=== PATIENT | female | born 1930 | race Native Hawaiian/Other Pacific Islander ===

== ENCOUNTER 2016-08-20 08:42 | Emergency (ER) | payer MEDICARE ==
[2016-08-20 08:42] VITALS: BMI 23.6
--- NOTE | 2016-08-20 09:10 | C.PDOC ---
History Of Present Illness 86-year-old female, PMHx includes Hypertension, Hypercholesterolemia, Osteoporosis, and Atrial Fibrillation s/p Pacemaker, presents to the emergency department with complaints of shortness of breath, that started at 06:00 this morning. Patient states she has never experienced this in the past. Notes that she had surgery on her left knee in 12/10, and it became swollen this past month. Patient is currently on ABX course for her leg. Denies fevers, chills, chest pain, nausea/vomiting, diarrhea, back pain, dizziness, headaches, numbness /weakness, or any other associated symptoms. No other complaints at this time. PMD Alexandra Hughes MD. Building Mover Torsten Guerrier MD. Time Seen by Provider: 08/20/16 08:44 Chief Complaint (Nursing): Shortness Of Breath History Per: Patient History/Exam Limitations: no limitations Onset/Duration Of Symptoms: Hrs Current Symptoms Are (Timing): Still Present Past Medical History Reviewed: Historical Data, Nursing Documentation, Vital Signs Vital Signs: Last Vital Signs Temp 98.1 F 08/20/16 09:07 Pulse 70 08/20/16 11:04 Resp 18 08/20/16 11:04 BP 143/67 08/20/16 11:04 Pulse Ox 100 08/20/16 11:04 - Medical History PMH: Arthritis, Cardia Arrhythmia, Depression, Fractures (right hip), HTN, Hypercholesterolemia, Osteoporosis Surgical History: Endoscopy, Pacemaker - [facility] Procedures REMOVE INT FIX DEV-FEMUR (09/05/14) REPLAC ANY TYPE PACE DEV W/ DUAL CHAMBER DEVICE (02/27/14) REPLACEMENT OF LEFT KNEE JOINT WITH SYNTH SUB, OPEN APPROACH (12/09/15) Family History: States: No Known Family Hx - Social History Hx Tobacco Use: No Hx Alcohol Use: No Hx Substance Use: No - Immunization History Hx Tetanus Toxoid Vaccination: No Hx Influenza Vaccination: Yes Hx Pneumococcal Vaccination: No Review Of Systems Constitutional: Negative for: Fever, Chills Cardiovascular: Negative for: Chest Pain Respiratory: Positive for: Shortness of Breath Gastrointestinal: Negative for: Vomiting Skin: Negative for: Rash Neurological: Negative for: Weakness, Numbness, Headache, Dizziness Physical Exam - Physical Exam Appears: Non-toxic, No Acute Distress Skin: Warm, Dry Head: Atraumatic Nose: No Epistaxis Oral Mucosa: Moist Lips: No Swelling Neck: Normal ROM Cardiovascular: Rhythm Regular, No Murmur Respiratory: No Accessory Muscle Use, Rales (Velcro crackles at left base) Gastrointestinal/Abdominal: Soft, No Tenderness Extremity: No Tenderness, Pedal Edema, No Deformity, Swelling, Other (Trace edema to left lower extremity. Swelling: left knee. Good pulses) Neurological/Psych: Oriented x3, Normal Motor, Normal Sensation, Other (no focal deficits) ED Course And Treatment - Laboratory Results Result Diagrams: 08/20/16 09:23 08/20/16 09:23 - Other Rad CXR X-Ray: Viewed By Me, Read By Radiologist Interpretation: FINDINGS: LUNGS: Hyperinflation, manifestations of COPD. No active pulmonary disease. PLEURA: No significant pleural effusion identified. No pneumothorax apparent. CARDIOVASCULAR: Cardiomegaly. No evidence of acute , significant cardiovascular disease. Position/ configuration of pacemaker\AICD device: Satisfactory. OSSEOUS STRUCTURES: No significant abnormalities. VISUALIZED UPPER ABDOMEN: Normal. OTHER FINDINGS: None. IMPRESSION: No active disease. Congestive heart failure apparent on the prior study has resolved. Medical Decision Making Medical Decision Making: EKG Rate 81bpm Rhythm Atrial Fibrillation Interpret Occasional PVCs, atrial paced. CXR: interstitial fibrotic changes. no acute findings. 1300 despite lengthy conversation with both myself and Dr Adkins, including risks of leaving and reasons for admission, the patient still wishes to sign out against medical advice. Disposition - Disposition Referrals: Alexandra Laws MD [Staff Provider] - Disposition: AGAINST MEDICAL ADVICE Disposition Time: 13:07 Condition: STABLE Forms: General Discharge Instructions - Clinical Impression Clinical Impression: Shortness of breath - Scribe Statement The provider has reviewed the documentation as recorded by the Candie Hanna All medical record entries made by the Scribe were at my direction and personally dictated by me. I have reviewed the chart and agree that the record accurately reflects my personal performance of the history, physical exam, medical decision making, and the department course for this patient. I have also personally directed, reviewed, and agree with the discharge instructions and disposition.
[2016-08-20 09:14] VITALS: TEMP 98.1
[2016-08-20 09:26] LABS: BASO # 0.1 K/uL (0.0-0.2); BASO % 1.2 % (0.0-2.0); EOS # 0.4 K/uL (0.0-0.7); EOS % 4.4 % (0.0-4.0); HEMATOCRIT 37.8 % (34.0-47.0); LYMPH # 1.1 K/uL (1.0-4.3); LYMPH % 14.2 % (20.0-40.0); MEAN CELL VOLUME 89.6 fL (81.0-99.0); MEAN CORPUSCULAR HEMOGLOBIN 29.7 pg (27.0-31.0); MEAN CORPUSCULAR HGB CONC 33.2 g/dL (33.0-37.0); MEAN PLATELET VOLUME 7.2 fL (7.2-11.7); MONO # 0.6 K/uL (0.0-0.8); MONO % 7.1 % (0.0-10.0); RED CELL DISTRIBUTION WIDTH 13.4 % (11.5-14.5); WHITE BLOOD COUNT 8.1 K/uL (4.8-10.8)
[2016-08-20 09:34] LABS: INR 1.2
[2016-08-20 09:37] LABS: CHLORIDE 99 mmol/L (98-107); POTASSIUM 4.4 mmol/L (3.6-5.2); SODIUM 138 mmol/L (132-148)
[2016-08-20 09:39] LABS: GFR AFRICAN-AMERICAN > 60
[2016-08-20 09:40] LABS: ALB/GLOB RATIO 0.9 (1.0-2.1); ALKALINE PHOSPHATASE 99 U/L (38-126); ALT/SGPT 12 U/L (9-52); AST/SGOT 33 U/L (14-36); BILIRUBIN,TOTAL 0.8 mg/dL (0.2-1.3); BLOOD UREA NITROGEN 14 mg/dL (7-17); CARBON DIOXIDE 27 mmol/L (22-30); GLUCOSE,RANDOM 101 mg/dL (65-105); TOTAL PROTEIN 8.6 g/dL (6.3-8.3)
[2016-08-20 09:41] LABS: CALCIUM 9.4 mg/dl (8.6-10.4)
--- NOTE | 2016-08-20 09:50 | RAD ---
HISTORY: Shortness of breath. COMPARISON: 09/07/2014. TECHNIQUE: Chest PA and lateral FINDINGS: LUNGS: Hyperinflation, manifestations of COPD. No active pulmonary disease. PLEURA: No significant pleural effusion identified. No pneumothorax apparent. CARDIOVASCULAR: Cardiomegaly. No evidence of acute, significant cardiovascular disease. Position/ configuration of pacemaker Satisfactory. OSSEOUS STRUCTURES: No significant abnormalities. VISUALIZED UPPER ABDOMEN: Normal. OTHER FINDINGS: None. IMPRESSION: No active disease. Congestive heart failure apparent on the prior study has resolved.
[2016-08-20 11:05] VITALS: BP 143/67; PULSE 70; RESP 18; O2SAT 100
--- NOTE | 2016-08-20 11:06 | NM ---
COMPARISON: August 20, 2016. Two view chest. 09/07/2014 ventilation-perfusion scan TECHNIQUE: 18.3 mCi technetium 99-m Xe-133 Gas. 3.5 mCI technetium 99-m MAA administered intravenously. FINDINGS: VENTILATION COMPONENT: Heterogeneous ventilation with considerable retention of radionuclide, air trapping on the washout component. This is particularly evident in the a left upper lobe and to a lesser extent right upper lobe. PERFUSION COMPONENT: Heterogeneous distribution of radionuclide. No geographic, segmental, lobar abnormalities apparent on the present examination. IMPRESSION: Low probability ventilation perfusion scan for pulmonary embolism.
--- NOTE | 2016-08-23 10:14 | VASCLAB ---
PROCEDURE: Left Lower Extremity Venous Duplex Exam. HISTORY: swelling PRIORS: None. TECHNIQUE: Left common femoral, femoral, popliteal and posterior tibial, peroneal and great saphenous veins were evaluated. Flow was assessed with color Doppler, compressibility, assessment of phasic flow and augmentation response. Report prepared by RONI Carrasco, RVT FINDINGS: LEFT: 1. Common Femoral Vein: 1.1. Compressibility - Fully compressible: Thrombus - None : Flow - Phasic: Augmentation -Normal: Reflux - None. 2. Femoral Vein: 2.1. Compressibility - Fully compressible: Thrombus - None: Flow - Phasic: Augmentation -Normal: Reflux - None. 3. Popliteal Vein: 3.1. Compressibility - Fully compressible: Thrombus - None: Flow - Phasic: Augmentation -Normal: Reflux - None. 4. Posterior Tibial Vein: 4.1. Compressibility - Fully compressible: Thrombus - None: Flow - Phasic: Augmentation -Normal: Reflux - None. 5. Peroneal Vein: 5.1. Compressibility - Fully compressible: Thrombus - None: Flow - Phasic: Augmentation -Normal: Reflux - None. 6. Great Saphenous Vein: 6.1. Compressibility - Fully compressible: Thrombus - None: Flow - Phasic: Augmentation - Normal: Reflux - None. OTHER FINDINGS: IMPRESSION: No evidence of deep or superficial vein thrombosis of the left lower extremity with excellent venous flow. Normal valve function noted of the left side. Normal venous flow noted in the right common femoral vein.
--- NOTE | 2016-08-23 12:21 | CARD ---
APPROVED REPORT EKG Measurement Heart [id number] <Conclusion> Atrial fibrillation with occasional atrial-paced complexes and with premature ventricular or aberrantly conducted complexes Right axis deviation Nonspecific ST abnormality Abnormal ECG MALFUNCTION OF PACEMAKER, NOT SENSING WELL
== END 2016-08-20 14:00 | disposition left against medical advice (07) ==
LOC: C.ER 08:42 → C.9E 11:22 → UNDOADMOB 11:22 → C.ER 14:00
DX: R06.02 Shortness of breath (principal); I10 Essential (primary) hypertension; E78.00 Pure hypercholesterolemia, unspecified; Z95.0 Presence of cardiac pacemaker
CPT/HCPCS: 71020; 78582; 80053; 83880; 84484; 85025; 85610; 85730; 93005; 93971; 99285; A9524; A9558

== ENCOUNTER 2016-09-05 13:28 | Inpatient (IN) | payer MEDICARE ==
[2016-09-05 13:36] VITALS: BMI 24.2
[2016-09-05] MEDS ORDERED: Sodium Chloride 0.9% 500 ML IV ONE (14:56)
--- NOTE | 2016-09-05 15:01 | C.PDOC ---
History Of Present Illness 86 yr old female presents to the ER with complaints of left knee pain and swelling ongoing for approximately last 9 months. Patient states she had a total knee replacement by Dr Merida in Nov 2015. Since then she has taken antibiotics (none in 1+ month), intermittent fevers, and pain. Worse with movement. Denies chest pain, SOB, back pain, foot pain, weakness or numbness. Time Seen by Provider: 09/05/16 14:41 Chief Complaint (Nursing): Lower Extremity Problem/Injury History Per: Patient History/Exam Limitations: no limitations Onset/Duration Of Symptoms: Persistent (Approx. 9 months ) Current Symptoms Are (Timing): Still Present Past Medical History Reviewed: Historical Data, Nursing Documentation, Vital Signs Vital Signs: Last Vital Signs Temp 97.9 F 09/08/16 15:58 Pulse 60 09/08/16 15:58 Resp 20 09/08/16 15:58 BP 148/68 09/08/16 15:58 Pulse Ox 97 09/08/16 15:58 - Medical History PMH: Arthritis, Cardia Arrhythmia, Depression, Fractures (right hip), HTN, Hypercholesterolemia, Osteoporosis Surgical History: Endoscopy, Pacemaker - [facility] Procedures REMOVE INT FIX DEV-FEMUR (09/05/14) REPLAC ANY TYPE PACE DEV W/ DUAL CHAMBER DEVICE (02/27/14) REPLACEMENT OF LEFT KNEE JOINT WITH SYNTH SUB, OPEN APPROACH (12/09/15) Family History: States: No Known Family Hx - Social History Hx Tobacco Use: No Hx Alcohol Use: No Hx Substance Use: No - Immunization History Hx Tetanus Toxoid Vaccination: No Hx Influenza Vaccination: Yes Hx Pneumococcal Vaccination: No Review Of Systems Except As Marked, All Systems Reviewed And Found Negative. Constitutional: Positive for: Fever (On and off. ) Cardiovascular: Negative for: Chest Pain Respiratory: Negative for: Shortness of Breath Musculoskeletal: Positive for: Other ((+) Left knee paind and swelling. ). Negative for: Back Pain, Foot Pain Neurological: Negative for: Weakness, Numbness Physical Exam - Physical Exam Appears: Well, Non-toxic, No Acute Distress Skin: Warm, Dry, No Rash Head: Atraumatic, Normacephalic Eye(s): bilateral: Normal Inspection, EOMI Nose: Normal Oral Mucosa: Moist Chest: Symmetrical, No Tenderness Cardiovascular: Rhythm Regular, No Murmur Respiratory: Normal Breath Sounds, No Rales, No Rhonchi, No Wheezing Extremity: Normal ROM (Normal ROM but with pain. ), No Calf Tenderness, Capillary Refill (<2 sec), Other (Right Knee - Swelling. Tenderness. Mild warmth. Mild erythema. Healed incision. No discharge) Extremity: Bilateral: Normal Color And Temperature Pulses: Left Dorsalis Pedis: Normal, Right Dorsalis Pedis: Normal Neurological/Psych: Oriented x3, Normal Speech, Normal Motor, Normal Sensation ED Course And Treatment - Laboratory Results Result Diagrams: 09/06/16 13:50 09/06/16 13:50 O2 Sat by Pulse Oximetry: 95 (RA) - CT Scan/US CT - Left Knee Other Rad Studies (CT/US): Read By Radiologist, Radiology Report Reviewed CT/US Interpretation: EXAM: CT Left Lower Extremity Without Intravenous Contrast, Knee. CLINICAL HISTORY: 86 years old, female; Pain; Knee; Left; Prior surgery; Surgery date: 6+ months; Surgery type: Total. left knee replacement. TECHNIQUE: Axial computed tomography images of the left knee without intravenous contrast. This CT exam was. performed using one or more of the following dose reduction techniques: automated exposure. control, adjustment of the mA and/or kV according to patient size, and/or use of iterative. reconstruction technique. COMPARISON: No relevant prior studies available. FINDINGS: Bones/joints: There has been a left total hip arthroplasty without apparent loosening or. displacement. A large suprapatellar joint effusion is present, which appears complex and dense. No. focal bony lesions are seen. No fractures or dislocation. Mild soft tissue thickening anterior to the. knee is present. Soft tissues: No soft tissue gas or fluid collection is present. Mild soft tissue edema anterior to the. knee. Vasculature: The vasculature demonstrates diffuse moderate atherosclerotic calcification. IMPRESSION: Post surgical changes are present as described. Assessment of the soft tissues are limited. secondary to extensive streak artifact. No evidence of soft tissue abscess or necrotizing fasciitis. Prominent suprapatellar joint effusion is seen which has complex features. Presence of the joint. infection or inflammatory process cannot be excluded given the complex appearance of the. suprapatellar joint effusion. Consider correlation with joint fluid sampling. Mild soft tissue edema anterior and superior to the patella which could represent cellulitis. Thank you for allowing us to participate in the care of your patient. Dictated and Authenticated by: Sanjiv Wright MD. 09/05/2016 5:34 PM Eastern Time ([place] & [place]) Progress Note: PLAN: CT - Left Knee, CBC, CMP, Urinalysis & Sodium Chloride IV. Case discussed with Dr Abad, agreed upon no abx at this time secondary to possible aspiration inpatient. Case was discussed with Dr. Alexandra Hughes who agrees to admit patient. Disposition - Disposition Disposition: HOSPITALIZED Disposition Time: 16:00 Condition: STABLE - Clinical Impression Clinical Impression: Knee pain, Cellulitis, S/P TKR (total knee replacement) - PA / INSURANCE LICENSING SUPERVISOR / Resident Statement MD/DO has reviewed & agrees with the documentation as recorded. - Scribe Statement The provider has reviewed the documentation as recorded by the Scribe Jessica Landry All medical record entries made by the Scribe were at my direction and personally dictated by me. I have reviewed the chart and agree that the record accurately reflects my personal performance of the history, physical exam, medical decision making, and the department course for this patient. I have also personally directed, reviewed, and agree with the discharge instructions and disposition.
[2016-09-05 16:12] LABS: BASO # 0.1 K/uL (0.0-0.2); BASO % 1.1 % (0.0-2.0); EOS # 0.5 K/uL (0.0-0.7); EOS % 6.5 % (0.0-4.0); LYMPH # 1.6 K/uL (1.0-4.3); LYMPH % 22.7 % (20.0-40.0); MEAN CELL VOLUME 90.2 fL (81.0-99.0); MEAN CORPUSCULAR HGB CONC 32.1 g/dL (33.0-37.0); MEAN PLATELET VOLUME 8.1 fL (7.2-11.7); MONO # 0.7 K/uL (0.0-0.8); MONO % 10.1 % (0.0-10.0); RED CELL DISTRIBUTION WIDTH 13.6 % (11.5-14.5)
[2016-09-05 16:28] LABS: RBC URINE < 1 /hpf (0-3); TRANSITIONAL EPITHIAL 1 /hpf (0-3); URINE BACTERIA RARE (<OCC); URINE BILIRUBIN NEGATIVE (NEGATIVE); URINE BLOOD NEGATIVE (NEGATIVE); URINE COLOR Yellow (YELLOW); URINE GLUCOSE (UA) NORMAL (Normal); URINE KETONE NEGATIVE (NEGATIVE); URINE LEUKOCYTE ESTERASE 2+ Leu/uL (Negative); URINE PROTEIN NEGATIVE (NEGATIVE); URINE UROBILINOGEN NORMAL mg/dL (0.2-1.0); WBC URINE 10 /hpf (0-5)
[2016-09-05 16:29] LABS: CHLORIDE 102 mmol/L (98-107); POTASSIUM 4.5 mmol/L (3.6-5.2); SODIUM 138 mmol/L (132-148)
[2016-09-05 16:31] LABS: GFR AFRICAN-AMERICAN > 60
[2016-09-05 16:32] LABS: ALB/GLOB RATIO 0.9 (1.0-2.1); ALKALINE PHOSPHATASE 98 U/L (38-126); ALT/SGPT 18 U/L (9-52); AST/SGOT 22 U/L (14-36); BILIRUBIN,TOTAL 0.6 mg/dL (0.2-1.3); BLOOD UREA NITROGEN 18 mg/dL (7-17); CARBON DIOXIDE 27 mmol/L (22-30); GLUCOSE,RANDOM 91 mg/dL (65-105); TOTAL PROTEIN 7.9 g/dL (6.3-8.3)
[2016-09-05 16:33] LABS: CALCIUM 9.1 mg/dl (8.6-10.4)
--- NOTE | 2016-09-05 19:22 | CP.PCM.HP ---
History of Present Illness - History of Present Illness History of Present Illness: This is an 86 y/o female well known to me with history of CAD S/P PCI and permanent pacemaker several years ago, HTN, hyperlipidemia and osteoarthritis who was admitted through the ER because of severe pain and swelling of the L knee. She claims that she has been having intermittent fever at home for which she has been taking Tylenol on and off for several weeks now. She lives by herself and she has been having such a difficult time getting around the house over the last several months. She underwent total knee replacement in [facility] in Nov 2015. Since then, she claims that she has never felt good and the swelling and pain in her left knee has never gone down. Over the last month, she has gone to the ER 3 times for the same problem. X-ray of the knee at that time showed joint effusion. She was advised to follow up with her orthopedist at his office. She claims that she has been following up with him in the office regularly since her surgery without relief of her symptoms. On her previous visit to the ER 2 weeks ago, she claims that her knee was so hot and swollen and she noticed purplish discoloration around the area extending to the popliteal area accompanied by some shortness of breath. Work up for DVT and PE then were reportedly negative and hence she was discharged. She followed up with her Orthopedist in his office and was given po antibiotics for about 10 days with some relief of the discoloration but the swelling, pain and heat and inflammation remained. She thus decided to go to the ER and she is now admitted for further evaluation. Present on Admission - Present on Admission Any Indicators Present on Admission: No History of DVT/PE: No History of Uncontrolled Diabetes: No Urinary Catheter: No Decubitus Ulcer Present: No History Surgical Site Infection Following: Orthopedic Procedures Review of Systems - Constitutional Constitutional: Fatigue, Fever, Night Sweats, Weight Loss, Weakness - EENT Eyes: As Per HPI Ears: As Per HPI Nose/Mouth/Throat: As Per HPI - Cardiovascular Cardiovascular: Dyspnea on Exertion, Irregular Heart Rhythm - Respiratory Respiratory: Dyspnea on Exertion Past Patient History - Infectious Disease Hx of Infectious Diseases: None - Tetanus Immunizations Tetanus Immunization: Unknown - Past Medical History & Family History Past Medical History?: Yes - Past Social History Smoking Status: Never Smoked Chewing Tobacco Use: No Cigar Use: No Alcohol: None Drugs: Denies Home Situation {Lives}: Alone Domestic Violence: Negative - CARDIAC Hx Angina: Yes Hx Cardia Arrhythmia: Yes Hx Hypercholesterolemia: Yes Hx Hypertension: Yes Hx Pacemaker: Yes - PULMONARY Hx Respiratory Disorders: No - NEUROLOGICAL Hx Neurological Disorder: No - HEENT Hx HEENT Problems: No - INTEGUMENTARY Hx Dermatological Problems: No - MUSCULOSKELETAL/RHEUMATOLOGICAL Hx Arthritis: Yes Hx Degenerative Joint Disease: Yes Hx Fractures: Yes (right hip) Hx Osteoarthritis: Yes Hx Osteoporosis: Yes Hx Unsteady Gait: Yes - PSYCHIATRIC Hx Depression: Yes Hx Substance Use: No - SURGICAL HISTORY Hx Surgeries: Yes Hx Angioplasty: Yes Hx Arthroscopy: Yes Hx Cardiac Catheterization: Yes Hx Coronary Stent: Yes Hx Joint Replacement: Yes Hx Open Reduction Internal Fixation: Yes Hx Orthopedic Surgery: Yes - ANESTHESIA Hx Anesthesia: Yes Hx Anesthesia Reactions: Yes (Confusion , Hallucination ) Hx Malignant Hyperthermia: No Meds Allergies/Adverse Reactions: Allergies Allergy/AdvReac Type Severity Reaction Status Date / Time Iodinated Contrast Media - Allergy fainting Verified 09/05/16 13:35 Oral and iodine dye AdvReac fainting Uncoded 09/05/16 13:35 Physical Exam - Constitutional Appears: No Acute Distress - Head Exam Head Exam: NORMAL INSPECTION - Eye Exam Eye Exam: Normal appearance - ENT Exam ENT Exam: Normal Exam - Neck Exam Neck exam: Positive for: Normal Inspection - Respiratory Exam Respiratory Exam: Clear to Auscultation Bilateral, NORMAL BREATHING PATTERN - Cardiovascular Exam Cardiovascular Exam: REGULAR RHYTHM - GI/Abdominal Exam GI & Abdominal Exam: Normal Bowel Sounds, Soft - Rectal Exam Rectal Exam: Deferred - Extremities Exam Extremities exam: Positive for: joint swelling, pedal edema, tenderness, pedal pulses present - Expanded Lower Extremities Exam Left Knee exam: effusion, swelling, tenderness - Neurological Exam Neurological exam: Alert, Oriented x3 - Psychiatric Exam Psychiatric exam: Anxious - Skin Skin Exam: Dry, Intact, Normal Color, Warm Results - Vital Signs Recent Vital Signs: Last Vital Signs Temp 98.5 F 09/05/16 13:36 Pulse 73 09/05/16 16:56 Resp 18 09/05/16 16:56 BP 108/79 09/05/16 16:56 Pulse Ox 95 09/05/16 17:36 - Labs Result Diagrams: 09/05/16 16:08 09/05/16 16:08 Assessment & Plan - Assessment and Plan (Free Text) Assessment: 1) Cellulitis of the R Knee, R/O Septic Arthritis- Will get X ray and CT Scan of the L knee. May need aspiration of the joint for diagnostic purposes. Will also get consultation with ID. Decision To Admit - Pt Status Changed To: Hospital Disposition Of: Inpatient - Admit Certification Admit to Inpatient:: After my assessment, the patient will require hospitalization for at least two midnights. This is because of the severity of symptoms shown, intensity of services needed, and/or the medical risk in this patient being treated as an outpatient. - InPatient: Physician Admission Certification:: After my assessment, the patient will require hospitalization for at least two midnights. This is because of the severity of symptoms shown, intensity of services needed, and/or the medical risk in this patient being treated as an outpatient. - . Bed Request Type: Telemetry Admitting Physician: Alexandra Laws
[2016-09-06] MEDS: cefTRIAXone 2 GM in Sodium Chloride 0.9% 100 ML IVPB SCH ×2 (00:45→09:32)
--- NOTE | 2016-09-06 08:23 | CT ---
CT left knee History: Knee pain. Prior knee arthroplasty. Comparison: 08/03/2016 Technique: Multiple contiguous axial images were performed through the left knee without the use of intravenous contrast. Subsequently, sagittal and coronal reformatted images were obtained. This CT exam was performed using one or more of the following dose reduction techniques: Automated exposure control, adjustment of the mA and/or kV according to patient size, and/or use of iterative reconstruction technique. Findings: Status post left total knee arthroplasty. Cemented tibial and femoral components. Metallic streak artifact, limits evaluation particularly at the level of the soft tissues. Focal lucency at the cement metal interface at the proximal tibia which may represent some mild loosening. No evidence of acute displaced fracture. Large suprapatellar joint effusion is present which appears complex and dense with some loculated and or hyperdense components as well as a suggestion of small loose osteochondral bodies and or calcifications. Mild soft tissue thickening within the anterior knee. On series 2, image 91; there is a 2.0 x 1.7 centimeter lobulated fat containing focus/lesion seen within what appears to be the soleus muscle which may represent an intramuscular lipomatous lesion versus focal fatty atrophy versus additional etiology. Clinical correlation. Vascular calcifications with moderate atherosclerotic calcification noted. Impression: Postsurgical changes as described. Suggestion of a lucency at the metal bone interface of the proximal tibial component anteriorly which may represent some mild loosening. Moderate suprapatellar joint effusion which appears complex and dense. Suggestion of a few small loose osteochondral bodies and or calcifications within the joint effusion. Presence of joint infection or inflammatory process cannot be excluded given the complex appearance of the suprapatellar joint effusion. Consider correlation with joint fluid sampling. Assessment of the soft tissues are limited secondary to extensive streak artifact. Lateral subluxation of the patella. On series 2, image 91; there is a 2.0 x 1.7 centimeter lobulated fat containing focus/lesion seen within what appears to be the soleus muscle which may represent an intramuscular lipomatous lesion versus focal fatty atrophy versus additional etiology. Clinical correlation. Mild soft tissue edema anterior and superior to the patella which may represent cellulitis. These findings were preliminarily reported at 5:34 p[address]. on 09/05/[address] Sanjiv Wright from [employer].
--- NOTE | 2016-09-06 10:45 | CP.PCM.CON ---
History of Present Illness - History of Present Illness History of Present Illness: 86 yo female with persistent pain and swelling s/p TKR work up in progress for possible septic joint called berta lares but RN could not provide any relevant details , hence empiric IV rx started may need join aspiration, removal of hardware if joint infected Usual pathogens include staph aureus/ staph epidermidis 86 y/o female well known to me with history of CAD S/P PCI and permanent pacemaker several years ago, HTN, hyperlipidemia and osteoarthritis who was admitted through the ER because of severe pain and swelling of the L knee. She claims that she has been having intermittent fever at home for which she has been taking Tylenol on and off for several weeks now. She lives by herself and she has been having such a difficult time getting around the house over the last several months. She underwent total knee replacement in [facility] in Nov 2015. Review of Systems - Review of Systems All systems: reviewed and no additional remarkable complaints except - Constitutional Constitutional: As Per HPI - EENT Eyes: As Per HPI Ears: As Per HPI Nose/Mouth/Throat: As Per HPI - Cardiovascular Cardiovascular: As Per HPI - Respiratory Respiratory: Excessive Mucous Production - Gastrointestinal Gastrointestinal: As Per HPI - Genitourinary Genitourinary: As Per HPI - Reproductive: Female Reproductive:Female: As Per HPI - Menstruation Menstruation: As Per HPI - Musculoskeletal Musculoskeletal: As Per HPI - Integumentary Integumentary: As Per HPI - Endocrine Endocrine: As Per HPI - Hematologic/Lymphatic Hematologic: As Per HPI Past Patient History - Infectious Disease Hx of Infectious Diseases: None - Tetanus Immunizations Tetanus Immunization: Unknown - Past Medical History & Family History Past Medical History?: Yes - Past Social History Smoking Status: Never Smoked - CARDIAC Hx Angina: Yes Hx Cardia Arrhythmia: Yes Hx Hypercholesterolemia: Yes Hx Hypertension: Yes Hx Pacemaker: Yes - PULMONARY Hx Respiratory Disorders: No - NEUROLOGICAL Hx Neurological Disorder: No - HEENT Hx HEENT Problems: No - INTEGUMENTARY Hx Dermatological Problems: No - MUSCULOSKELETAL/RHEUMATOLOGICAL Hx Falls: No - PSYCHIATRIC Hx Substance Use: No - SURGICAL HISTORY Hx Surgeries: Yes Hx Angioplasty: Yes Hx Arthroscopy: Yes Hx Cardiac Catheterization: Yes Hx Coronary Stent: Yes Hx Joint Replacement: Yes Hx Open Reduction Internal Fixation: Yes Hx Orthopedic Surgery: Yes - ANESTHESIA Hx Anesthesia: Yes Hx Anesthesia Reactions: Yes (Confusion , Hallucination ) Hx Malignant Hyperthermia: No Meds Allergies/Adverse Reactions: Allergies Allergy/AdvReac Type Severity Reaction Status Date / Time Iodinated Contrast Media - Allergy fainting Verified 09/05/16 13:35 Oral and iodine dye AdvReac fainting Uncoded 09/05/16 13:35 - Medications Medications: Current Medications Amlodipine Besylate (Norvasc) 5 mg PO DAILY [facility] Last Admin: 09/06/16 09:32 Dose: 5 mg Duloxetine HCl (Cymbalta) 30 mg PO DAILY [facility] Last Admin: 09/06/16 09:33 Dose: 30 mg Heparin Sodium (Porcine) (Heparin) 5,000 units SC Q8 [facility] Ceftriaxone Sodium 2 gm/ (Sodium Chloride) 100 mls @ 100 mls/hr IVPB DAILY [facility] Last Admin: 09/06/16 09:32 Dose: 100 mls/hr Ibuprofen (Motrin Tab) 600 mg PO BID PRN PRN Reason: Pain, Mild (1-3) Last Admin: 09/06/16 09:18 Dose: 600 mg Losartan Potassium (Cozaar) 50 mg PO DAILY [facility] Last Admin: 09/06/16 09:32 Dose: 50 mg Rosuvastatin Calcium (Crestor) 10 mg PO HS [facility] Last Admin: 09/05/16 21:51 Dose: 10 mg Sotalol HCl (Betapace) 80 mg PO Q12 [facility] Last Admin: 09/05/16 21:51 Dose: 80 mg Physical Exam - Constitutional Appears: Non-toxic, Chronically Ill - Head Exam Head Exam: NORMOCEPHALIC - Eye Exam Eye Exam: PERRL. absent: Scleral icterus - ENT Exam ENT Exam: Mucous Membranes Dry, Normal External Ear Exam, Normal Oropharynx - Neck Exam Neck exam: Negative for: Lymphadenopathy - Respiratory Exam Respiratory Exam: Decreased Breath Sounds, Clear to Auscultation Bilateral - Cardiovascular Exam Cardiovascular Exam: REGULAR RHYTHM - GI/Abdominal Exam GI & Abdominal Exam: Diminished Bowel Sounds, Soft - Rectal Exam Rectal Exam: Deferred - Exam Exam: NORMAL INSPECTION - Extremities Exam Extremities exam: Negative for: pedal edema - Back Exam Back exam: absent: CVA tenderness (L), CVA tenderness (R) - Neurological Exam Neurological exam: Alert, CN II-XII Intact, Oriented x3, Reflexes Normal - Psychiatric Exam Psychiatric exam: Normal Affect - Skin Skin Exam: Dry Results - Vital Signs Recent Vital Signs: Last Vital Signs Temp 98.2 F 09/06/16 07:05 Pulse 64 09/06/16 07:05 Resp 18 09/06/16 07:05 BP 142/73 09/06/16 07:05 Pulse Ox 95 09/06/16 07:05 - Labs Result Diagrams: 09/06/16 13:50 09/06/16 13:50 Assessment & Plan (1) Knee pain Status: Acute (2) S/P TKR (total knee replacement) Status: Acute - Assessment and Plan (Free Text) Assessment: for ortho eval, imaging cultures and IV antibiotics
[2016-09-06] MEDS: Dextrose 5%/0.45% NS 1,000 ML IV SCH (11:45)
--- NOTE | 2016-09-06 11:51 | CP.PCM.PN ---
Subjective - Date & Time of Evaluation Date of Evaluation: 09/06/16 Time of Evaluation: 11:30 - Subjective Subjective: - L knee remains very swollen, hot and tender. patient unable to take a step without pain. - ID consult noted and appreciated- patient started on IV Rocephin empirically - CT Scan of the L knee- quite abnormal with large effusion of inflammatory or infectious origin. Post surgical changes noted. - Consult with interventional radiology requested for joint aspiration Objective - Vital Signs/Intake and Output Vital Signs (last 24 hours): Temp Pulse Resp BP Pulse Ox 98.2 F 64 18 142/73 95 09/06/16 07:05 09/06/16 07:05 09/06/16 07:05 09/06/16 07:05 09/06/16 07:05 Intake and Output: 09/06/16 09/06/16 06:59 18:59 Intake Total 350 Balance 350 - Medications Medications: Current Medications Amlodipine Besylate (Norvasc) 5 mg PO DAILY [facility] Last Admin: 09/06/16 09:32 Dose: 5 mg Duloxetine HCl (Cymbalta) 30 mg PO DAILY [facility] Last Admin: 09/06/16 09:33 Dose: 30 mg Heparin Sodium (Porcine) (Heparin) 5,000 units SC Q8 [facility] Ceftriaxone Sodium 2 gm/ (Sodium Chloride) 100 mls @ 100 mls/hr IVPB DAILY [facility] Last Admin: 09/06/16 09:32 Dose: 100 mls/hr Dextrose/Sodium Chloride (Dextrose 5%/0.45% Ns 1000 Ml) 1,000 mls @ 50 mls/hr IV .Q20H [facility] Ibuprofen (Motrin Tab) 600 mg PO BID PRN PRN Reason: Pain, Mild (1-3) Last Admin: 09/06/16 09:18 Dose: 600 mg Losartan Potassium (Cozaar) 50 mg PO DAILY [facility] Last Admin: 09/06/16 09:32 Dose: 50 mg Rosuvastatin Calcium (Crestor) 10 mg PO HS [facility] Last Admin: 09/05/16 21:51 Dose: 10 mg Sotalol HCl (Betapace) 80 mg PO Q12 [facility] Last Admin: 09/06/16 10:00 Dose: 80 mg
--- NOTE | 2016-09-06 12:21 | RAD ---
PROCEDURE: Left knee dated 09/06/2016. HISTORY: Pain. COMPARISON: Comparison made with 08/03/2016. FINDINGS: BONES: Re- demonstrated is left total knee arthroplasty. Hardware appears intact without evidence of loosening or infection. . Mild soft tissue swelling and small joint effusion, slightly diminished from prior study JOINTS: As above JOINT EFFUSION: As above OTHER FINDINGS: Vascular calcifications are again seen. IMPRESSION: Re- demonstrated is left total knee arthroplasty. Hardware appears intact without evidence of loosening or infection. Mild soft tissue swelling and small joint effusion, slightly diminished from prior study.
[2016-09-06 13:57] LABS: BASO # 0.1 K/uL (0.0-0.2); EOS # 0.4 K/uL (0.0-0.7); EOS % 6.7 % (0.0-4.0); HEMATOCRIT 35.7 % (34.0-47.0); LYMPH # 1.3 K/uL (1.0-4.3); LYMPH % 21.1 % (20.0-40.0); MEAN CELL VOLUME 90.4 fL (81.0-99.0); MEAN CORPUSCULAR HEMOGLOBIN 29.3 pg (27.0-31.0); MEAN CORPUSCULAR HGB CONC 32.4 g/dL (33.0-37.0); MEAN PLATELET VOLUME 7.9 fL (7.2-11.7); MONO # 0.6 K/uL (0.0-0.8); MONO % 9.7 % (0.0-10.0); NRBC % 0.1 % (0.0-2.0); WHITE BLOOD COUNT 6.2 K/uL (4.8-10.8)
[2016-09-06 14:06] LABS: INR 1.1
[2016-09-06 14:27] LABS: CHLORIDE 107 mmol/L (98-107); SODIUM 143 mmol/L (132-148)
[2016-09-06 14:30] LABS: ALKALINE PHOSPHATASE 108 U/L (38-126); ALT/SGPT 14 U/L (9-52); AST/SGOT 27 U/L (14-36); BILIRUBIN,TOTAL 0.6 mg/dL (0.2-1.3); BLOOD UREA NITROGEN 13 mg/dL (7-17); CARBON DIOXIDE 24 mmol/L (22-30); GFR AFRICAN-AMERICAN > 60; GLUCOSE,RANDOM 127 mg/dL (65-105); TOTAL PROTEIN 8.1 g/dL (6.3-8.3); URIC ACID 5.8 mg/dL (2.2-7.5)
[2016-09-06 14:31] LABS: CALCIUM 9.2 mg/dl (8.6-10.4)
[2016-09-06] MEDS ORDERED: cefTRIAXone 2 GM in Sodium Chloride 0.9% 100 ML IVPB SCH (23:13)
[2016-09-07] MEDS: Dextrose 5%/0.45% NS 1,000 ML IV SCH (08:45)
[2016-09-07] MEDS: cefTRIAXone 2 GM in Sodium Chloride 0.9% 100 ML IVPB SCH (09:24)
--- NOTE | 2016-09-07 10:33 | CP.PCM.CON ---
History of Present Illness - History of Present Illness History of Present Illness: Orthopedic consultation Dr. Merida for left knee pain 86F s/p Left TKR at [facility] by Dr. Merida 12/09/2015 complaining of chronic left knee pain, especially with ambulation, that keeps her up at night. She has been following up regularly with Dr. Merida. She denies any recent trauma or falls. She denies any drainage from knee or wound problems. She denies CP/SOB/dizziness /nausea/vomiting. She reports had fever on and off. She denies any aspiration of the joint in the past. PMD Dr. Hughes who admitted patient, ID consultation appreciated. Review of Systems - Review of Systems All systems: reviewed and no additional remarkable complaints except - Constitutional Constitutional: Fever - Cardiovascular Cardiovascular: As Per HPI - Respiratory Respiratory: As Per HPI - Gastrointestinal Gastrointestinal: As Per HPI - Musculoskeletal Musculoskeletal: As Per HPI - Integumentary Integumentary: As Per HPI - Neurological Neurological: As Per HPI - Hematologic/Lymphatic Hematologic: absent: As Per HPI, Easy Bleeding, Easy Bruising, Lymphadenopathy, Other Past Patient History - Infectious Disease Hx of Infectious Diseases: None - Tetanus Immunizations Tetanus Immunization: Unknown - Past Medical History & Family History Past Medical History?: Yes Past Family History: Reviewed and not pertinent - Past Social History Smoking Status: Never Smoked Chewing Tobacco Use: No Cigar Use: No Alcohol: None Drugs: Denies Home Situation {Lives}: Alone Domestic Violence: Negative - CARDIAC Hx Angina: Yes Hx Cardia Arrhythmia: Yes Hx Hypercholesterolemia: Yes Hx Hypertension: Yes Hx Pacemaker: Yes - PULMONARY Hx Respiratory Disorders: No - NEUROLOGICAL Hx Neurological Disorder: No - HEENT Hx HEENT Problems: No - INTEGUMENTARY Hx Dermatological Problems: No - MUSCULOSKELETAL/RHEUMATOLOGICAL Hx Arthritis: Yes - PSYCHIATRIC Hx Depression: Yes Hx Substance Use: No - SURGICAL HISTORY Hx Surgeries: Yes Hx Angioplasty: Yes Hx Arthroscopy: Yes Hx Cardiac Catheterization: Yes Hx Coronary Stent: Yes Hx Joint Replacement: Yes Hx Open Reduction Internal Fixation: Yes Hx Orthopedic Surgery: Yes - ANESTHESIA Hx Anesthesia: Yes Hx Anesthesia Reactions: Yes (Confusion , Hallucination ) Hx Malignant Hyperthermia: No Meds Allergies/Adverse Reactions: Allergies Allergy/AdvReac Type Severity Reaction Status Date / Time Iodinated Contrast Media - Allergy fainting Verified 09/05/16 13:35 Oral and iodine dye AdvReac fainting Uncoded 09/05/16 13:35 - Medications Medications: Current Medications Amlodipine Besylate (Norvasc) 5 mg PO DAILY [facility] Last Admin: 09/07/16 09:23 Dose: 5 mg Duloxetine HCl (Cymbalta) 30 mg PO DAILY [facility] Last Admin: 09/07/16 09:23 Dose: 30 mg Famotidine (Pepcid) 20 mg PO DAILY [facility] Last Admin: 09/07/16 09:23 Dose: 20 mg Heparin Sodium (Porcine) (Heparin) 5,000 units SC Q8 [facility] Last Admin: 09/07/16 05:41 Dose: 5,000 units Ceftriaxone Sodium 2 gm/ (Sodium Chloride) 100 mls @ 100 mls/hr IVPB DAILY [facility] Last Admin: 09/07/16 09:24 Dose: 100 mls/hr Dextrose/Sodium Chloride (Dextrose 5%/0.45% Ns 1000 Ml) 1,000 mls @ 50 mls/hr IV .Q20H [facility] Last Admin: 09/07/16 08:45 Dose: 50 mls/hr Ibuprofen (Motrin Tab) 600 mg PO BID PRN PRN Reason: Pain, Mild (1-3) Last Admin: 09/07/16 08:51 Dose: 600 mg Losartan Potassium (Cozaar) 50 mg PO DAILY [facility] Last Admin: 09/07/16 09:23 Dose: 50 mg Rosuvastatin Calcium (Crestor) 10 mg PO HS [facility] Last Admin: 09/06/16 22:09 Dose: 10 mg Sotalol HCl (Betapace) 80 mg PO Q12 [facility] Last Admin: 09/07/16 09:24 Dose: 80 mg Physical Exam - Constitutional Appears: Well, No Acute Distress - Extremities Exam Additional comments: Left knee: incision intact, well healed, no drainage generalized tenderness to knee ant/lat/med knee is warm to touch noted joint effusion, moderate minimal pain with ROM of knee, WNL, but patient exhibits mod to severe pain with weight bearing +DP pulse calves soft NT neg homans sensation intact - Skin Skin Exam: Dry, Intact, Warm Additional comments: incision well healed some darkening of skin anteriorly over knee, but not erythematous Results - Vital Signs Recent Vital Signs: Last Vital Signs Temp 98.1 F 09/07/16 07:40 Pulse 67 09/07/16 07:40 Resp 20 09/07/16 07:40 BP 165/73 H 09/07/16 07:40 Pulse Ox 95 09/07/16 07:40 - Labs Result Diagrams: 09/06/16 13:50 09/06/16 13:50 Labs: Laboratory Results - last 24 hr 09/06/16 09/06/16 09/06/16 13:50 13:50 13:50 WBC 6.2 RBC 3.95 Hgb 11.6 Hct 35.7 MCV 90.4 MCH 29.3 MCHC 32.4 L RDW 14.0 Plt Count 320 MPV 7.9 Neut % (Auto) 60.5 Lymph % (Auto) 21.1 [place] % (Auto) 9.7 Eos % (Auto) 6.7 H Baso % (Auto) 2.0 Neut # 3.8 Lymph # 1.3 [place] # 0.6 Eos # 0.4 Baso # 0.1 ESR PT 11.9 INR 1.1 APTT 50 H Sodium 143 Potassium 4.0 Chloride 107 Carbon Dioxide 24 Anion Gap 16 BUN 13 Creatinine 0.7 Est GFR ( Amer) > 60 Est GFR (Non-Af Amer) > 60 Random Glucose 127 H Uric Acid 5.8 Calcium 9.2 Total Bilirubin 0.6 AST 27 ALT 14 Alkaline Phosphatase 108 C-React Prot High Sens Total Protein 8.1 Albumin 3.9 Globulin 4.1 H Albumin/Globulin Ratio 1.0 Procalcitonin 09/06/16 09/07/16 09/07/16 13:50 08:49 08:49 WBC RBC Hgb Hct MCV MCH MCHC RDW Plt Count MPV Neut % (Auto) Lymph % (Auto) [place] % (Auto) Eos % (Auto) Baso % (Auto) Neut # Lymph # [place] # Eos # Baso # ESR 67 H PT INR APTT Sodium Potassium Chloride Carbon Dioxide Anion Gap BUN Creatinine Est GFR ( Amer) Est GFR (Non-Af Amer) Random Glucose Uric Acid Calcium Total Bilirubin AST ALT Alkaline Phosphatase C-React Prot High Sens 3.50 H Total Protein Albumin Globulin Albumin/Globulin Ratio Procalcitonin < 0.05 L Assessment & Plan (1) S/P TKR (total knee replacement) Assessment and Plan: with left knee pain, warmth, swelling ESR/CRP patient afeb during admission with normal WBC per Dr. Hughes, IR aspiration of knee ordered imaging reviewed by Dr. Merida, and compared to post operative imaging 11/2015, states components acceptable and no evidence of loosening or sepsis. will follow VTE proph on heparin patient states that she does not want any more surgery on her knee at this time Status: Acute Radiology Interpretation - Automated Cutting Machine Operator Automated Cutting Machine Operator:: Radiologist, Knitting Teacher - Radiology Interpretation #2 Interpretation: Patient Name / ID : HERBIE MEYERS / [id number] Exam Date : 09/06/2016 10:01:06 ( Approved ) Study Comment : Sex / Age : F / 86Y Creator : Domingo Beckham MD Dictator : Domingo Beckham MD Farm Contractor Buyer : Residential Team Leader : Domingo Beckham MD Approver2 : Report Date : 09/06/2016 12:15:40 My Comment : PROCEDURE: Left knee dated 09/06/2016. HISTORY: Pain. COMPARISON: Comparison made with 08/03/2016. FINDINGS: BONES: Re- demonstrated is left total knee arthroplasty. Hardware appears intact without evidence of loosening or infection. . Mild soft tissue swelling and small joint effusion, slightly diminished from prior study JOINTS: As above JOINT EFFUSION: As above OTHER FINDINGS: Vascular calcifications are again seen. IMPRESSION: Re- demonstrated is left total knee arthroplasty. Hardware appears intact without evidence of loosening or infection. Mild soft tissue swelling and small joint effusion, slightly diminished from prior study. - Radiology Interpretation #3 Interpretation: Patient Name / ID : HERBIE MEYERS / [id number] Exam Date : 09/05/2016 15:59:53 ( Approved ) Study Comment : Sex / Age : F / 86Y Creator : Eddie Caldwell MD Dictator : Eddie Caldwell MD Farm Contractor Buyer : Residential Team Leader : Eddie Caldwell MD Approver2 : Report Date : 09/06/2016 08:21:54 My Comment : CT left knee History: Knee pain. Prior knee arthroplasty. Comparison: 08/03/2016 Technique: Multiple contiguous axial images were performed through the left knee without the use of intravenous contrast. Subsequently, sagittal and coronal reformatted images were obtained. This CT exam was performed using one or more of the following dose reduction techniques: Automated exposure control, adjustment of the mA and/or kV according to patient size, and/or use of iterative reconstruction technique. Findings: Status post left total knee arthroplasty. Cemented tibial and femoral components. Metallic streak artifact, limits evaluation particularly at the level of the soft tissues. Focal lucency at the cement metal interface at the proximal tibia which may represent some mild loosening. No evidence of acute displaced fracture. Large suprapatellar joint effusion is present which appears complex and dense with some loculated and or hyperdense components as well as a suggestion of small loose osteochondral bodies and or calcifications. Mild soft tissue thickening within the anterior knee. On series 2, image 91; there is a 2.0 x 1.7 centimeter lobulated fat containing focus/lesion seen within what appears to be the soleus muscle which may represent an intramuscular lipomatous lesion versus focal fatty atrophy versus additional etiology. Clinical correlation. Vascular calcifications with moderate atherosclerotic calcification noted. Impression: Postsurgical changes as described. Suggestion of a lucency at the metal bone interface of the proximal tibial component anteriorly which may represent some mild loosening. Moderate suprapatellar joint effusion which appears complex and dense. Suggestion of a few small loose osteochondral bodies and or calcifications within the joint effusion. Presence of joint infection or inflammatory process cannot be excluded given the complex appearance of the suprapatellar joint effusion. Consider correlation with joint fluid sampling. Assessment of the soft tissues are limited secondary to extensive streak artifact. Lateral subluxation of the patella. On series 2, image 91; there is a 2.0 x 1.7 centimeter lobulated fat containing focus/lesion seen within what appears to be the soleus muscle which may represent an intramuscular lipomatous lesion versus focal fatty atrophy versus additional etiology. Clinical correlation. Mild soft tissue edema anterior and superior to the patella which may represent cellulitis. These findings were preliminarily reported at 5:34 p.m. on 09/05/[address] Sanjiv Wright from [facility].
--- NOTE | 2016-09-07 17:05 | CP.PCM.PN ---
Subjective - Date & Time of Evaluation Date of Evaluation: 09/07/16 Time of Evaluation: 17:55 - Subjective Subjective: -patient continues to complain of pain on the L knee that continues to be swollen, warm and tender but she claims that knee seems to be improving -She is unable to walk without pain -afebrile, no chest pain, no shortness of breath -No aspiration needed as per Ortho. Treatment as per Dr. Tilley -Continue IV antibiotic for now and NSAID -Physical therapy Objective - Vital Signs/Intake and Output Vital Signs (last 24 hours): Temp Pulse Resp BP Pulse Ox 98.1 F 67 20 165/73 H 95 09/07/16 07:40 09/07/16 07:40 09/07/16 07:40 09/07/16 07:40 09/07/16 07:40 Intake and Output: 09/07/16 09/07/16 06:59 18:59 Intake Total 600 900 Balance 600 900 - Medications Medications: Current Medications Amlodipine Besylate (Norvasc) 5 mg PO DAILY [facility] Last Admin: 09/07/16 09:23 Dose: 5 mg Duloxetine HCl (Cymbalta) 30 mg PO DAILY [facility] Last Admin: 09/07/16 09:23 Dose: 30 mg Famotidine (Pepcid) 20 mg PO DAILY [facility] Last Admin: 09/07/16 09:23 Dose: 20 mg Heparin Sodium (Porcine) (Heparin) 5,000 units SC Q8 [facility] Last Admin: 09/07/16 13:32 Dose: 5,000 units Ceftriaxone Sodium 2 gm/ (Sodium Chloride) 100 mls @ 100 mls/hr IVPB DAILY [facility] Last Admin: 09/07/16 09:24 Dose: 100 mls/hr Dextrose/Sodium Chloride (Dextrose 5%/0.45% Ns 1000 Ml) 1,000 mls @ 50 mls/hr IV .Q20H [facility] Last Admin: 09/07/16 08:45 Dose: 50 mls/hr Ibuprofen (Motrin Tab) 600 mg PO BID PRN PRN Reason: Pain, Mild (1-3) Last Admin: 09/07/16 08:51 Dose: 600 mg Losartan Potassium (Cozaar) 50 mg PO DAILY [facility] Last Admin: 09/07/16 09:23 Dose: 50 mg Rosuvastatin Calcium (Crestor) 10 mg PO HS [facility] Last Admin: 09/06/16 22:09 Dose: 10 mg Sotalol HCl (Betapace) 80 mg PO Q12 [facility] Last Admin: 09/07/16 09:24 Dose: 80 mg - Labs Labs: 09/06/16 13:50 09/06/16 13:50 PT 11.9 SECONDS (9.7-12.2) 09/06/16 13:50 INR 1.1 09/06/16 13:50 APTT 50 SECONDS (21-34) H 09/06/16 13:50 Assessment and Plan - Assessment and Plan (Free Text) Assessment: 1) Cellulitis of the R Knee, R/O Septic Arthritis- Patient currently on IV antibiotic and antiinflammatory. Starting Physical therapy
--- NOTE | 2016-09-07 18:19 | CP.PCM.PN ---
Subjective - Date & Time of Evaluation Date of Evaluation: 09/07/16 Time of Evaluation: 09:00 - Subjective Subjective: events noted to discuss conservative management possible iv rx /SONDRA Objective - Vital Signs/Intake and Output Vital Signs (last 24 hours): Temp Pulse Resp BP Pulse Ox 97.3 F L 60 20 125/62 100 09/07/16 17:26 09/07/16 17:26 09/07/16 17:26 09/07/16 17:26 09/07/16 17:26 Intake and Output: 09/07/16 09/07/16 06:59 18:59 Intake Total 600 900 Balance 600 900 - Medications Medications: Current Medications Amlodipine Besylate (Norvasc) 5 mg PO DAILY [facility] Last Admin: 09/07/16 09:23 Dose: 5 mg Duloxetine HCl (Cymbalta) 30 mg PO DAILY [facility] Last Admin: 09/07/16 09:23 Dose: 30 mg Famotidine (Pepcid) 20 mg PO DAILY [facility] Last Admin: 09/07/16 09:23 Dose: 20 mg Heparin Sodium (Porcine) (Heparin) 5,000 units SC Q8 [facility] Last Admin: 09/07/16 13:32 Dose: 5,000 units Ceftriaxone Sodium 2 gm/ (Sodium Chloride) 100 mls @ 100 mls/hr IVPB DAILY [facility] Last Admin: 09/07/16 09:24 Dose: 100 mls/hr Dextrose/Sodium Chloride (Dextrose 5%/0.45% Ns 1000 Ml) 1,000 mls @ 50 mls/hr IV .Q20H [facility] Last Admin: 09/07/16 08:45 Dose: 50 mls/hr Ibuprofen (Motrin Tab) 600 mg PO BID PRN PRN Reason: Pain, Mild (1-3) Last Admin: 09/07/16 08:51 Dose: 600 mg Losartan Potassium (Cozaar) 50 mg PO DAILY [facility] Last Admin: 09/07/16 09:23 Dose: 50 mg Rosuvastatin Calcium (Crestor) 10 mg PO HS [facility] Last Admin: 09/06/16 22:09 Dose: 10 mg Sotalol HCl (Betapace) 80 mg PO Q12 [facility] Last Admin: 09/07/16 09:24 Dose: 80 mg - Labs Labs: 09/06/16 13:50 09/06/16 13:50 PT 11.9 SECONDS (9.7-12.2) 09/06/16 13:50 INR 1.1 09/06/16 13:50 APTT 50 SECONDS (21-34) H 09/06/16 13:50 Assessment and Plan (1) Knee pain Status: Acute (2) S/P TKR (total knee replacement) Status: Acute
[2016-09-08] MEDS: Dextrose 5%/0.45% NS 1,000 ML IV SCH ×2 (03:45→05:32)
[2016-09-08] MEDS: cefTRIAXone 2 GM in Sodium Chloride 0.9% 100 ML IVPB SCH (09:19)
--- NOTE | 2016-09-08 12:40 | CP.PCM.PN ---
Subjective - Date & Time of Evaluation Date of Evaluation: 09/08/16 Time of Evaluation: 08:00 - Subjective Subjective: Patient states that her knee is feeling a little better, but still has pain. She says that she doesn't want any surgery, and that she is too old to have surgery again. Denies any new complaints. at this time. Review of Systems - Review of Systems All systems: reviewed and no additional remarkable complaints except - Constitutional Additional comments: denies fever/chills - Cardiovascular Cardiovascular: UNREMARKABLE - Respiratory Respiratory: UNREMARKABLE - Gastrointestinal Gastrointestinal: UNREMARKABLE - Genitourinary Genitourinary: UNREMARKABLE - Musculoskeletal Musculoskeletal: As Par HPI - Integumentary Integumentary: UNREMARKABLE - Neurological Neurological: Abnormal Gait - Hematologic/Lymphatic Hematologic: UNREMARKABLE Objective - Vital Signs/Intake and Output Vital Signs (last 24 hours): Temp Pulse Resp BP Pulse Ox 97.9 F 63 20 164/77 H 97 09/08/16 07:40 09/08/16 07:40 09/08/16 07:40 09/08/16 07:40 09/08/16 07:40 Intake and Output: 09/08/16 09/08/16 06:59 18:59 Intake Total 1190 Balance 1190 - Medications Medications: Current Medications Amlodipine Besylate (Norvasc) 5 mg PO DAILY [facility] Last Admin: 09/08/16 09:19 Dose: 5 mg Duloxetine HCl (Cymbalta) 30 mg PO DAILY [facility] Last Admin: 09/08/16 09:19 Dose: 30 mg Famotidine (Pepcid) 20 mg PO DAILY [facility] Last Admin: 09/08/16 09:19 Dose: 20 mg Heparin Sodium (Porcine) (Heparin) 5,000 units SC Q8 [facility] Last Admin: 09/08/16 05:34 Dose: 5,000 units Ceftriaxone Sodium 2 gm/ (Sodium Chloride) 100 mls @ 100 mls/hr IVPB DAILY [facility] Last Admin: 09/08/16 09:19 Dose: 100 mls/hr Dextrose/Sodium Chloride (Dextrose 5%/0.45% Ns 1000 Ml) 1,000 mls @ 50 mls/hr IV .Q20H [facility] Last Admin: 09/08/16 05:32 Dose: 50 mls/hr Ibuprofen (Motrin Tab) 600 mg PO BID PRN PRN Reason: Pain, Mild (1-3) Last Admin: 09/07/16 20:26 Dose: 600 mg Losartan Potassium (Cozaar) 50 mg PO DAILY [facility] Last Admin: 09/08/16 09:19 Dose: 50 mg Rosuvastatin Calcium (Crestor) 10 mg PO HS [facility] Last Admin: 09/07/16 22:30 Dose: 10 mg Sotalol HCl (Betapace) 80 mg PO Q12 [facility] Last Admin: 09/08/16 09:19 Dose: 80 mg - Labs Labs: 09/06/16 13:50 09/06/16 13:50 PT 11.9 SECONDS (9.7-12.2) 09/06/16 13:50 INR 1.1 09/06/16 13:50 APTT 50 SECONDS (21-34) H 09/06/16 13:50 - Constitutional Appears: Well, No Acute Distress - Cardiovascular Exam Additional comments: +DP/PT pulses calves soft NT neg homans - Extremities Exam Additional comments: Left knee: no change, knee warm, no erythema, mod joint effusion, No laxity to varus/valgus, generalized TTP, sensation intact - Neurological Exam Neurological Exam: Alert, Awake, Oriented x3 Neuro motor strength exam: Left Upper Extremity: 5 (ankle DF/PF, knee flex/ext) - Psychiatric Exam Psychiatric exam: Normal Affect - Skin Skin Exam: Dry, Intact, Warm Additional comments: no erythema, skin is dark Assessment and Plan (1) S/P TKR (total knee replacement) Assessment & Plan: patient with continued pain, but a little improved per patient per Dr. Merida, continue PT, OOB, VTE proph plan as per Dr. Treva kelly, no leukocytosis, crp min elevated orthopedically stable for patient to f/u in office d/w Dr. Merida, tx as above Status: Acute
--- NOTE | 2016-09-08 14:47 | CP.PCM.PN ---
Subjective - Date & Time of Evaluation Date of Evaluation: 09/08/16 Time of Evaluation: 14:30 - Subjective Subjective: -Patient feeling better. Still has pain when she stands and walks but seems to be much less. -L knee swelling also seems to have significantly subsided, still warm and tender -Ortho follow up noted. -to continue with PT -to refer to [facility] to continue current antibiotic treatment and Physical therapy - Objective - Vital Signs/Intake and Output Vital Signs (last 24 hours): Temp Pulse Resp BP Pulse Ox 97.9 F 63 20 164/77 H 97 09/08/16 07:40 09/08/16 07:40 09/08/16 07:40 09/08/16 07:40 09/08/16 07:40 Intake and Output: 09/08/16 09/08/16 06:59 18:59 Intake Total 1190 Balance 1190 - Medications Medications: Current Medications Amlodipine Besylate (Norvasc) 5 mg PO DAILY [facility] Last Admin: 09/08/16 09:19 Dose: 5 mg Duloxetine HCl (Cymbalta) 30 mg PO DAILY [facility] Last Admin: 09/08/16 09:19 Dose: 30 mg Famotidine (Pepcid) 20 mg PO DAILY [facility] Last Admin: 09/08/16 09:19 Dose: 20 mg Heparin Sodium (Porcine) (Heparin) 5,000 units SC Q8 [facility] Last Admin: 09/08/16 13:15 Dose: 5,000 units Ceftriaxone Sodium 2 gm/ (Sodium Chloride) 100 mls @ 100 mls/hr IVPB DAILY [facility] Last Admin: 09/08/16 09:19 Dose: 100 mls/hr Dextrose/Sodium Chloride (Dextrose 5%/0.45% Ns 1000 Ml) 1,000 mls @ 50 mls/hr IV .Q20H [facility] Last Admin: 09/08/16 05:32 Dose: 50 mls/hr Ibuprofen (Motrin Tab) 600 mg PO BID PRN PRN Reason: Pain, Mild (1-3) Last Admin: 09/07/16 20:26 Dose: 600 mg Losartan Potassium (Cozaar) 50 mg PO DAILY [facility] Last Admin: 09/08/16 09:19 Dose: 50 mg Rosuvastatin Calcium (Crestor) 10 mg PO HS [facility] Last Admin: 09/07/16 22:30 Dose: 10 mg Sotalol HCl (Betapace) 80 mg PO Q12 [facility] Last Admin: 09/08/16 09:19 Dose: 80 mg - Labs Labs: 09/06/16 13:50 09/06/16 13:50 PT 11.9 SECONDS (9.7-12.2) 09/06/16 13:50 INR 1.1 09/06/16 13:50 APTT 50 SECONDS (21-34) H 09/06/16 13:50
--- NOTE | 2016-09-08 18:56 | CP.PCM.PN ---
Subjective - Date & Time of Evaluation Date of Evaluation: 09/08/16 Time of Evaluation: 09:00 - Subjective Subjective: left knee less painful/ less swollen CT noted consider drainage / culture superior patellar site cont iv antibiotics for 6 weeks if conservative rx fails may need revision/ replacement Objective - Vital Signs/Intake and Output Vital Signs (last 24 hours): Temp Pulse Resp BP Pulse Ox 97.9 F 60 20 148/68 97 09/08/16 15:58 09/08/16 15:58 09/08/16 15:58 09/08/16 15:58 09/08/16 15:58 Intake and Output: 09/08/16 09/08/16 06:59 18:59 Intake Total 1190 700 Balance 1190 700 - Medications Medications: Current Medications Amlodipine Besylate (Norvasc) 5 mg PO DAILY [facility] Last Admin: 09/08/16 09:19 Dose: 5 mg Duloxetine HCl (Cymbalta) 30 mg PO DAILY [facility] Last Admin: 09/08/16 09:19 Dose: 30 mg Famotidine (Pepcid) 20 mg PO DAILY [facility] Last Admin: 09/08/16 09:19 Dose: 20 mg Heparin Sodium (Porcine) (Heparin) 5,000 units SC Q8 [facility] Last Admin: 09/08/16 13:15 Dose: 5,000 units Ceftriaxone Sodium 2 gm/ (Sodium Chloride) 100 mls @ 100 mls/hr IVPB DAILY [facility] Last Admin: 09/08/16 09:19 Dose: 100 mls/hr Dextrose/Sodium Chloride (Dextrose 5%/0.45% Ns 1000 Ml) 1,000 mls @ 50 mls/hr IV .Q20H [facility] Last Admin: 09/08/16 05:32 Dose: 50 mls/hr Ibuprofen (Motrin Tab) 600 mg PO BID PRN PRN Reason: Pain, Mild (1-3) Last Admin: 09/07/16 20:26 Dose: 600 mg Losartan Potassium (Cozaar) 50 mg PO DAILY [facility] Last Admin: 09/08/16 09:19 Dose: 50 mg Rosuvastatin Calcium (Crestor) 10 mg PO HS [facility] Last Admin: 09/07/16 22:30 Dose: 10 mg Sotalol HCl (Betapace) 80 mg PO Q12 [facility] Last Admin: 09/08/16 09:19 Dose: 80 mg - Labs Labs: 09/06/16 13:50 09/06/16 13:50 PT 11.9 SECONDS (9.7-12.2) 09/06/16 13:50 INR 1.1 09/06/16 13:50 APTT 50 SECONDS (21-34) H 09/06/16 13:50 - Constitutional Appears: Non-toxic, Cachectic, Chronically Ill - Head Exam Head Exam: NORMOCEPHALIC - Eye Exam Eye Exam: PERRL. absent: Scleral icterus - ENT Exam ENT Exam: Mucous Membranes Dry, Normal External Ear Exam - Neck Exam Neck Exam: absent: Lymphadenopathy - Respiratory Exam Respiratory Exam: Decreased Breath Sounds - Cardiovascular Exam Cardiovascular Exam: REGULAR RHYTHM - GI/Abdominal Exam GI & Abdominal Exam: Distended, Soft - Rectal Exam Rectal Exam: Deferred - Exam Exam: NORMAL INSPECTION - Back Exam Back Exam: absent: CVA tenderness (L), CVA tenderness (R) - Neurological Exam Neurological Exam: Alert, Awake, Oriented x3 Assessment and Plan (1) Knee pain Status: Acute (2) S/P TKR (total knee replacement) Status: Acute - Assessment and Plan (Free Text) Plan: cont iv rx for 6 weeks
[2016-09-08 20:42] VITALS: O2SAT 95
[2016-09-09] MEDS: Dextrose 5%/0.45% NS 1,000 ML IV SCH (01:04)
--- NOTE | 2016-09-09 08:06 | CP.PCM.PN ---
Subjective - Date & Time of Evaluation Date of Evaluation: 09/09/16 Time of Evaluation: 07:50 - Subjective Subjective: S- pt with marked improvement( case discussed with Radhika kirkpatrick pa-c) Objective - Vital Signs/Intake and Output Vital Signs (last 24 hours): Temp Pulse Resp BP Pulse Ox 98.0 F 70 20 136/70 95 09/08/16 23:20 09/08/16 23:20 09/08/16 23:20 09/08/16 23:20 09/08/16 23:20 Intake and Output: 09/09/16 09/09/16 06:59 18:59 Intake Total 700 Balance 700 - Medications Medications: Current Medications Amlodipine Besylate (Norvasc) 5 mg PO DAILY [facility] Last Admin: 09/08/16 09:19 Dose: 5 mg Duloxetine HCl (Cymbalta) 30 mg PO DAILY [facility] Last Admin: 09/08/16 09:19 Dose: 30 mg Famotidine (Pepcid) 20 mg PO DAILY [facility] Last Admin: 09/08/16 09:19 Dose: 20 mg Heparin Sodium (Porcine) (Heparin) 5,000 units SC Q8 [facility] Last Admin: 09/09/16 05:39 Dose: 5,000 units Ceftriaxone Sodium 2 gm/ (Sodium Chloride) 100 mls @ 100 mls/hr IVPB DAILY [facility] Last Admin: 09/08/16 09:19 Dose: 100 mls/hr Dextrose/Sodium Chloride (Dextrose 5%/0.45% Ns 1000 Ml) 1,000 mls @ 50 mls/hr IV .Q20H [facility] Last Admin: 09/09/16 01:04 Dose: Not Given Ibuprofen (Motrin Tab) 600 mg PO BID PRN PRN Reason: Pain, Mild (1-3) Last Admin: 09/08/16 19:38 Dose: 600 mg Losartan Potassium (Cozaar) 50 mg PO DAILY [facility] Last Admin: 09/08/16 09:19 Dose: 50 mg Rosuvastatin Calcium (Crestor) 10 mg PO HS [facility] Last Admin: 09/08/16 21:43 Dose: 10 mg Sotalol HCl (Betapace) 80 mg PO Q12 [facility] Last Admin: 09/08/16 21:43 Dose: 80 mg - Labs Labs: 09/06/16 13:50 09/06/16 13:50 PT 11.9 SECONDS (9.7-12.2) 09/06/16 13:50 INR 1.1 09/06/16 13:50 APTT 50 SECONDS (21-34) H 09/06/16 13:50 - Additional Findings Additional findings: Objective afebirle VSS systemic- wnl Musculoskektlal stance/gait- defrred ROM :L knee not restricted orthopedically stable no drainage calor appropriate for TKR at this stage no drainage NO INcreased pain wiuth passive flexion/dorsiflexion Assessment and Plan - Assessment and Plan (Free Text) Assessment: A- s/p L TKR P- orthopedically stable agree with OIV abios for period of time althought there is NO evidence of deep sepsis on presentation
[2016-09-09 08:17] LABS: BASO # 0.1 K/uL (0.0-0.2); BASO % 2.2 % (0.0-2.0); EOS # 0.3 K/uL (0.0-0.7); EOS % 6.6 % (0.0-4.0); HEMATOCRIT 35.5 % (34.0-47.0); LYMPH # 1.2 K/uL (1.0-4.3); LYMPH % 25.8 % (20.0-40.0); MEAN CELL VOLUME 89.7 fL (81.0-99.0); MEAN CORPUSCULAR HEMOGLOBIN 29.5 pg (27.0-31.0); MEAN CORPUSCULAR HGB CONC 32.9 g/dL (33.0-37.0); MEAN PLATELET VOLUME 8.3 fL (7.2-11.7); MONO # 0.5 K/uL (0.0-0.8); MONO % 10.1 % (0.0-10.0); RED CELL DISTRIBUTION WIDTH 13.5 % (11.5-14.5); WHITE BLOOD COUNT 4.5 K/uL (4.8-10.8)
[2016-09-09] MEDS: cefTRIAXone 2 GM in Sodium Chloride 0.9% 100 ML IVPB SCH (09:35)
[2016-09-09 09:46] LABS: CHLORIDE 102 mmol/L (98-107); POTASSIUM 3.5 mmol/L (3.6-5.2); SODIUM 136 mmol/L (132-148)
[2016-09-09 09:48] LABS: GFR AFRICAN-AMERICAN > 60
[2016-09-09 09:49] LABS: BLOOD UREA NITROGEN 8 mg/dL (7-17); CALCIUM 9.1 mg/dl (8.6-10.4); CARBON DIOXIDE 26 mmol/L (22-30); GLUCOSE,RANDOM 109 mg/dL (65-105)
[2016-09-09 14:27] VITALS: TEMP 97.6
--- NOTE | 2016-09-09 14:45 | CP.PCM.PN ---
Subjective - Date & Time of Evaluation Date of Evaluation: 09/09/16 Time of Evaluation: 09:00 - Subjective Subjective: blood cultures negative iv rx in progress improving on Rocephin Objective - Vital Signs/Intake and Output Vital Signs (last 24 hours): Temp Pulse Resp BP Pulse Ox 97.6 F 61 18 156/78 H 95 09/09/16 14:26 09/09/16 14:26 09/09/16 14:26 09/09/16 14:26 09/08/16 23:20 Intake and Output: 09/09/16 09/09/16 06:59 18:59 Intake Total 700 Balance 700 - Medications Medications: Current Medications Amlodipine Besylate (Norvasc) 5 mg PO DAILY [facility] Last Admin: 09/09/16 09:34 Dose: 5 mg Duloxetine HCl (Cymbalta) 30 mg PO DAILY [facility] Last Admin: 09/09/16 09:34 Dose: 30 mg Famotidine (Pepcid) 20 mg PO DAILY [facility] Last Admin: 09/09/16 09:35 Dose: 20 mg Ceftriaxone Sodium 2 gm/ (Sodium Chloride) 100 mls @ 100 mls/hr IVPB DAILY [facility] Last Admin: 09/09/16 09:35 Dose: 100 mls/hr Ibuprofen (Motrin Tab) 600 mg PO BID PRN PRN Reason: Pain, Mild (1-3) Last Admin: 09/09/16 14:39 Dose: 600 mg Losartan Potassium (Cozaar) 50 mg PO DAILY [facility] Last Admin: 09/09/16 09:35 Dose: 50 mg Rosuvastatin Calcium (Crestor) 10 mg PO HS [facility] Last Admin: 09/08/16 21:43 Dose: 10 mg Sotalol HCl (Betapace) 80 mg PO Q12 [facility] Last Admin: 09/09/16 09:34 Dose: 80 mg - Labs Labs: 09/09/16 07:57 09/09/16 07:57 PT 11.9 SECONDS (9.7-12.2) 09/06/16 13:50 INR 1.1 09/06/16 13:50 APTT 50 SECONDS (21-34) H 09/06/16 13:50 - Constitutional Appears: Non-toxic, Chronically Ill - Head Exam Head Exam: NORMOCEPHALIC - Eye Exam Eye Exam: PERRL. absent: Scleral icterus - ENT Exam ENT Exam: Mucous Membranes Dry, Normal External Ear Exam - Neck Exam Neck Exam: absent: Lymphadenopathy - Respiratory Exam Respiratory Exam: Decreased Breath Sounds, Clear to Ausculation Bilateral - Cardiovascular Exam Cardiovascular Exam: REGULAR RHYTHM - GI/Abdominal Exam GI & Abdominal Exam: Distended, Soft - Rectal Exam Rectal Exam: Deferred - Exam Exam: NORMAL INSPECTION - Extremities Exam Extremities Exam: absent: Calf Tenderness, Pedal Edema - Back Exam Back Exam: absent: CVA tenderness (L), CVA tenderness (R) - Neurological Exam Neurological Exam: Alert, Awake, Oriented x3 Assessment and Plan (1) Knee pain Status: Acute (2) S/P TKR (total knee replacement) Status: Acute - Assessment and Plan (Free Text) Plan: cont iv rx for 6 weeks
--- NOTE | 2016-09-09 15:22 | CP.PCM.DIS ---
Provider - Provider Date of Admission: 09/05/16 16:52 Attending physician: Alexandra Laws MD Primary care physician: Clovis Laws Time Spent in preparation of Discharge (in minutes): 40 Diagnosis - Discharge Diagnosis (1) Septic arthritis of knee Status: Acute Priority: High (2) S/P TKR (total knee replacement) Status: Chronic (3) HTN (hypertension) Status: Chronic Priority: Low Hospital Course - Lab Results Lab Results: Micro Results 09/06/16 13:17 Blood-Venous Blood Culture - Preliminary NO GROWTH AFTER 3 DAYS Most Recent Lab Values WBC 4.5 K/uL (4.8-10.8) L 09/09/16 07:57 RBC 3.96 Mil/uL (3.80-5.20) 09/09/16 07:57 Hgb 11.7 g/dL (11.0-16.0) 09/09/16 07:57 Hct 35.5 % (34.0-47.0) 09/09/16 07:57 MCV 89.7 fL (81.0-99.0) 09/09/16 07:57 MCH 29.5 pg (27.0-31.0) 09/09/16 07:57 MCHC 32.9 g/dL (33.0-37.0) L 09/09/16 07:57 RDW 13.5 % (11.5-14.5) 09/09/16 07:57 Plt Count 324 K/uL (130-400) 09/09/16 07:57 MPV 8.3 fL (7.2-11.7) 09/09/16 07:57 Neut % (Auto) 55.3 % (50.0-75.0) 09/09/16 07:57 Lymph % (Auto) 25.8 % (20.0-40.0) 09/09/16 07:57 [place] % (Auto) 10.1 % (0.0-10.0) H 09/09/16 07:57 Eos % (Auto) 6.6 % (0.0-4.0) H 09/09/16 07:57 Baso % (Auto) 2.2 % (0.0-2.0) H 09/09/16 07:57 Neut # 2.5 K/uL (1.8-7.0) 09/09/16 07:57 Lymph # 1.2 K/uL (1.0-4.3) 09/09/16 07:57 Wake # 0.5 K/uL (0.0-0.8) 09/09/16 07:57 Eos # 0.3 K/uL (0.0-0.7) 09/09/16 07:57 Baso # 0.1 K/uL (0.0-0.2) 09/09/16 07:57 ESR 67 mm/hr (0-20) H 09/07/16 08:49 PT 11.9 SECONDS (9.7-12.2) 09/06/16 13:50 INR 1.1 09/06/16 13:50 APTT 50 SECONDS (21-34) H 09/06/16 13:50 Sodium 136 mmol/L (132-148) 09/09/16 07:57 Potassium 3.5 mmol/L (3.6-5.2) L 09/09/16 07:57 Chloride 102 mmol/L (98-107) 09/09/16 07:57 Carbon Dioxide 26 mmol/L (22-30) 09/09/16 07:57 Anion Gap 12 (10-20) 09/09/16 07:57 BUN 8 mg/dL (7-17) 09/09/16 07:57 Creatinine 0.7 MG/DL (0.7-1.2) 09/09/16 07:57 Est GFR ( Amer) > 60 09/09/16 07:57 Est GFR (Non-Af Amer) > 60 09/09/16 07:57 Random Glucose 109 mg/dL (65-105) H 09/09/16 07:57 Uric Acid 5.8 mg/dL (2.2-7.5) 09/06/16 13:50 Calcium 9.1 mg/dl (8.6-10.4) 09/09/16 07:57 Total Bilirubin 0.6 mg/dL (0.2-1.3) 09/06/16 13:50 AST 27 U/L (14-36) 09/06/16 13:50 ALT 14 U/L (9-52) 09/06/16 13:50 Alkaline Phosphatase 108 U/L (38-126) 09/06/16 13:50 C-React Prot High Sens 3.50 mg/L (1.00-3.00) H 09/07/16 08:49 Total Protein 8.1 g/dL (6.3-8.3) 09/06/16 13:50 Albumin 3.9 g/dL (3.5-5.0) 09/06/16 13:50 Globulin 4.1 gm/dL (2.2-3.9) H 09/06/16 13:50 Albumin/Globulin Ratio 1.0 (1.0-2.1) 09/06/16 13:50 Procalcitonin < 0.05 NG/ML (0.19-0.49) L 09/06/16 13:50 Urine Color Yellow (YELLOW) 09/05/16 16:08 Urine Clarity Clear (Clear) 09/05/16 16:08 Urine pH 6.0 (5.0-8.0) 09/05/16 16:08 Ur Specific [place] 1.010 (1.003-1.030) 09/05/16 16:08 Urine Protein Negative mg/dL (NEGATIVE) 09/05/16 16:08 Urine Glucose (UA) Normal mg/dL (Normal) 09/05/16 16:08 Urine Ketones Negative mg/dL (NEGATIVE) 09/05/16 16:08 Urine Blood Negative (NEGATIVE) 09/05/16 16:08 Urine Nitrate Negative (NEGATIVE) 09/05/16 16:08 Urine Bilirubin Negative (NEGATIVE) 09/05/16 16:08 Urine Urobilinogen Normal mg/dL (0.2-1.0) 09/05/16 16:08 Ur Leukocyte Esterase 2+ Real/uL (Negative) H 09/05/16 16:08 Urine WBC (Auto) 10 /hpf (0-5) H 09/05/16 16:08 Urine RBC (Auto) < 1 /hpf (0-3) 09/05/16 16:08 Ur Squamous Epith Cells < 1 /hpf (0-5) 09/05/16 16:08 Ur Transition Epith Cell 1 /hpf (0-3) 09/05/16 16:08 Urine Bacteria Rare (<OCC) 09/05/16 16:08 Discharge Exam - Head Exam Head Exam: NORMOCEPHALIC Discharge Plan - Follow Up Plan Condition: STABLE Disposition: HOME/ ROUTINE
[2016-09-09 16:33] VITALS: BP 147/73; PULSE 65; RESP 20
== END 2016-09-09 18:00 | DRG 549 ==
LOC: C.ER 13:28 → C.9E 16:52 → C.6T 18:22
PROVIDERS: ADMIT Internal Medicine Cardiovascular Disease; ATTEND Internal Medicine Cardiovascular Disease
DX: M00.9 Pyogenic arthritis, unspecified (principal); L03.116 Cellulitis of left lower limb; I10 Essential (primary) hypertension; E78.5 Hyperlipidemia, unspecified; M25.462 Effusion, left knee; E78.00 Pure hypercholesterolemia, unspecified; I25.10 Atherosclerotic heart disease of native coronary artery without angina pectoris; Z96.652 Presence of left artificial knee joint; Z96.642 Presence of left artificial hip joint; Z95.5 Presence of coronary angioplasty implant and graft; Z95.0 Presence of cardiac pacemaker; M19.90 Unspecified osteoarthritis, unspecified site; M81.0 Age-related osteoporosis without current pathological fracture

== ENCOUNTER 2016-09-15 21:46 | Inpatient (IN) | payer MEDICARE ==
[2016-09-15 21:47] VITALS: BMI 24.2
--- NOTE | 2016-09-15 23:39 | C.PDOC ---
History Of Present Illness 86 y/o female presents to ED with c/o left knee pain and swelling after her knee replacement procedure. Patient seen in ER 2 weeks ago, admitted to hospital , with CT scan and abx. Denies fall or trauma, fever, chills, nausea, or vomiting. No other complaints at this time. Time Seen by Provider: 09/15/16 23:38 Chief Complaint (Nursing): Lower Extremity Problem/Injury History Per: Patient History/Exam Limitations: no limitations Onset/Duration Of Symptoms: Days Current Symptoms Are (Timing): Still Present Severity: Mild Pain Scale Rating Of: 4 Recent travel outside of the [place]: No Additional History Per: Family Past Medical History Reviewed: Historical Data, Nursing Documentation, Vital Signs Vital Signs: Last Vital Signs Temp 97.7 F 09/16/16 00:50 Pulse 60 09/16/16 00:50 Resp 16 09/16/16 00:50 BP 144/75 09/16/16 00:50 Pulse Ox 97 09/16/16 00:50 - Medical History PMH: Arthritis, Cardia Arrhythmia, Depression, Fractures (right hip), HTN, Hypercholesterolemia, Osteoporosis Surgical History: Endoscopy, Pacemaker - [employer] Procedures REMOVE INT FIX DEV-FEMUR (09/05/14) REPLAC ANY TYPE PACE DEV W/ DUAL CHAMBER DEVICE (02/27/14) REPLACEMENT OF LEFT KNEE JOINT WITH SYNTH SUB, OPEN APPROACH (12/09/15) Family History: States: Unknown Family Hx - Social History Hx Tobacco Use: No Hx Alcohol Use: No Hx Substance Use: No - Immunization History Hx Tetanus Toxoid Vaccination: No Hx Influenza Vaccination: Yes Hx Pneumococcal Vaccination: No Review Of Systems Except As Marked, All Systems Reviewed And Found Negative. Constitutional: Negative for: Fever, Chills Cardiovascular: Negative for: Chest Pain Respiratory: Negative for: Shortness of Breath Gastrointestinal: Negative for: Nausea, Vomiting Musculoskeletal: Positive for: Other (left knee pain) Skin: Positive for: Rash, Bruising Neurological: Negative for: Weakness, Numbness Psych: Positive for: Anxiety Physical Exam - Physical Exam Appears: Non-toxic, No Acute Distress Skin: Warm, Dry Head: Atraumatic, Normacephalic Oral Mucosa: Moist Neck: Supple Chest: Symmetrical Cardiovascular: Rhythm Regular Respiratory: Normal Breath Sounds, No Rales, No Rhonchi, No Wheezing Gastrointestinal/Abdominal: Soft, No Tenderness, No Guarding, No Rebound Back: Normal Inspection Extremity: Normal ROM, Capillary Refill (< 2 sec. ), No Deformity, Other (Well healed left knee scar. 10 x 6 area of ecchymosis around left knee joint. Full ROM. (+) Suprapatellar fluid with ballottement. Good pulses and sensory intact. ) Extremity: Left: [place] Tenderness, Normal Color And Temperature Neurological/Psych: Oriented x3, Normal Speech, Normal Cognition, Normal Motor, Normal Sensation Gait: Steady ED Course And Treatment - Laboratory Results Result Diagrams: 09/16/16 00:48 09/16/16 00:48 O2 Sat by Pulse Oximetry: 96 (RA) Pulse Ox Interpretation: Normal Progress Note: VBG, bloodwork, Toradol, IVFs ordered. Disposition Discussed With : Clifford Skelton Comment: accepted the pt pt on his service and took over the care at 2:30 AM Doctor Will See Patient In The: Hospital Counseled Patient/Family Regarding: Studies Performed, Diagnosis - Disposition Disposition: HOSPITALIZED Disposition Time: 23:39 Condition: FAIR - POA Present On Arrival: None - Clinical Impression Clinical Impression: Knee pain, Cellulitis, S/P TKR (total knee replacement) - Scribe Statement The provider has reviewed the documentation as recorded by the Candie Guerrier Provider Attestation: All medical record entries made by the Candie were at my direction and personally dictated by me. I have reviewed the chart and agree that the record accurately reflects my personal performance of the history, physical exam, medical decision making, and the department course for this patient. I have also personally directed, reviewed, and agree with the discharge instructions and disposition. Decision To Admit - Pt Status Changed To: Hospital Disposition Of: Inpatient - Admit Certification Admit to Inpatient:: After my assessment, the patient will require hospitalization for at least two midnights. This is because of the severity of symptoms shown, intensity of services needed, and/or the medical risk in this patient being treated as an outpatient. - InPatient: Physician Admission Certification: I certify that this patient requires 2 or more midnights of care for the following reason:: After my assessment, the patient will require hospitalization for at least two midnights. This is because of the severity of symptoms shown, intensity of services needed, and/or the medical risk in this patient being treated as an outpatient. - . Bed Request Type: Regular Admitting Physician: Clifford Skelton Patient Diagnosis: Septic arthritis of knee, S/P TKR (total knee replacement), Knee pain
[2016-09-16] MEDS ORDERED: Sodium Chloride 0.9% 1,000 ML ONE (00:48)
[2016-09-16 00:50] LABS: BASO # 0.1 K/uL (0.0-0.2); BASO % 1.1 % (0.0-2.0); EOS # 0.5 K/uL (0.0-0.7); EOS % 6.4 % (0.0-4.0); HEMOGLOBIN 11.8 g/dL (11.0-16.0); LYMPH # 1.3 K/uL (1.0-4.3); LYMPH % 15.8 % (20.0-40.0); MEAN CELL VOLUME 89.7 fL (81.0-99.0); MEAN CORPUSCULAR HEMOGLOBIN 29.1 pg (27.0-31.0); MEAN CORPUSCULAR HGB CONC 32.5 g/dL (33.0-37.0); MEAN PLATELET VOLUME 7.7 fL (7.2-11.7); MONO # 1.2 K/uL (0.0-0.8); MONO % 15.1 % (0.0-10.0); NEUT % 61.6 % (50.0-75.0); RBC 4.05 Mil/uL (3.80-5.20); RED CELL DISTRIBUTION WIDTH 13.9 % (11.5-14.5); WHITE BLOOD COUNT 8.1 K/uL (4.8-10.8)
[2016-09-16 00:51] LABS: VENOUS BLOOD GAS PCO2 49 mmHg (40-60); VENOUS BLOOD GAS PO2 31 mm/Hg (30-55); VENOUS BLOOD PH 7.38 (7.32-7.43)
[2016-09-16] MEDS: Sodium Chloride 0.9% 1,000 ML IV SCH ×4 (00:55→20:12)
[2016-09-16 00:58] LABS: ALBUMIN 3.8 g/dL (3.5-5.0)
[2016-09-16 01:01] LABS: ALB/GLOB RATIO 0.9 (1.0-2.1); AST/SGOT 34 U/L (14-36); GFR AFRICAN-AMERICAN > 60; GFR NON-AFRICAN AMERICAN > 60
[2016-09-16 01:02] LABS: ALT/SGPT 14 U/L (9-52); BLOOD UREA NITROGEN 16 mg/dL (7-17); CALCIUM 9.1 mg/dl (8.6-10.4)
[2016-09-16 01:08] LABS: PROTHROMBIN TIME 11.1 SECONDS (9.7-12.2)
[2016-09-16] MEDS ORDERED: CODEINE PO PRN (02:43)
[2016-09-16] MEDS ORDERED: Magnesium Hydroxide Susp 30 ml UD PO PRN (02:43)
[2016-09-16] MEDS ORDERED: TYLENOL PO PRN (02:43)
[2016-09-16] MEDS ORDERED: Vancomycin 1 GM 1 GM/250 ML BAG IVPB ONE (03:17)
[2016-09-16 07:16] VITALS: RESP 20
--- NOTE | 2016-09-16 09:55 | CP.PCM.CON ---
History of Present Illness - History of Present Illness History of Present Illness: Orthopedic consultation requested Dr. Merida left knee pain 86F s/p Left TKR nov 2015 readmitted for left knee discoloration. She says while at longterm, when they came in for rounds last night they noticed the "black and blue" around her knee and sent her to ER. She denies any recent trauma/falls/injury. Says she has been doing PT.Denies fever/chills/nausea/ vomiting/CP/SOB/numbness/tingling. Review of Systems - Review of Systems All systems: reviewed and no additional remarkable complaints except - Constitutional Constitutional: As Per HPI - Cardiovascular Cardiovascular: As Per HPI - Respiratory Respiratory: As Per HPI - Gastrointestinal Gastrointestinal: As Per HPI - Musculoskeletal Musculoskeletal: As Per HPI - Integumentary Integumentary: As Per HPI - Neurological Neurological: As Per HPI - Hematologic/Lymphatic Hematologic: absent: As Per HPI, Easy Bleeding, Easy Bruising, Lymphadenopathy, Other Past Patient History - Infectious Disease Hx of Infectious Diseases: None - Tetanus Immunizations Tetanus Immunization: Unknown - Past Medical History & Family History Past Medical History?: Yes - Past Social History Smoking Status: Never Smoked - CARDIAC Hx Cardia Arrhythmia: Yes Hx Hypercholesterolemia: Yes Hx Hypertension: Yes Hx Pacemaker: Yes - HEENT Hx HEENT Problems: No - INTEGUMENTARY Hx Dermatological Problems: No - MUSCULOSKELETAL/RHEUMATOLOGICAL Hx Arthritis: Yes Hx Fractures: Yes (right hip) Hx Osteoporosis: Yes - PSYCHIATRIC Hx Depression: Yes Hx Substance Use: No - SURGICAL HISTORY Hx Joint Replacement: Yes (L TKR 12/09/15) - ANESTHESIA Hx Anesthesia: Yes Hx Anesthesia Reactions: Yes (Confusion , Hallucination ) Hx Malignant Hyperthermia: No Meds Allergies/Adverse Reactions: Allergies Allergy/AdvReac Type Severity Reaction Status Date / Time Iodinated Contrast Media - Allergy fainting Verified 09/15/16 22:05 Oral and iodine dye AdvReac fainting Uncoded 09/15/16 22:04 - Medications Medications: Current Medications Acetaminophen/Codeine Phosphate (Tylenol/Codeine 300 Mg/30 Mg) 1 ea PO Q4 PRN PRN Reason: Pain, severe (8-10) Amlodipine Besylate (Norvasc) [address] [facility] Ceftriaxone Sodium (Rocephin) [address] [facility] Duloxetine HCl (Cymbalta) [address] [facility] Famotidine (Pepcid) [address] [facility] Heparin Sodium (Porcine) (Heparin) 5,[address] [facility] Last Admin: 09/16/16 06:25 Dose: 5,000 units Sodium Chloride (Sodium Chloride 0.9%) 1,000 mls @ 100 mls/hr IV .Q10H [facility] Last Admin: 09/16/16 07:54 Dose: 100 mls/hr Ibuprofen (Motrin Tab) 600 mg PO BID PRN PRN Reason: Pain, Mild (1-3) Last Admin: 09/16/16 03:39 Dose: 600 mg Lidocaine (Lidoderm) [address] [facility] Losartan Potassium (Cozaar) [address] [facility] Magnesium Hydroxide (Milk Of Magnesia) 30 ml PO DAILY PRN PRN Reason: Constipation Rosuvastatin Calcium (Crestor) [address] [facility] Sotalol HCl (Betapace) [address] [facility] Physical Exam - Constitutional Appears: Well, No Acute Distress - Respiratory Exam Respiratory Exam: NORMAL BREATHING PATTERN - Cardiovascular Exam Additional comments: +DP/PT pulses - Extremities Exam Additional comments: Left knee: large area of erythema and ecchymosis to anterior knee. warm. Knee tender to touch. Pain with ROM of knee. calves soft NT neg homans. +ROM ankle/ toes, sensation intact - Neurological Exam Neurological exam: Alert, Oriented x3 - Psychiatric Exam Psychiatric exam: Normal Affect, Normal Mood - Skin Skin Exam: Dry, Intact, Warm Results - Vital Signs Recent Vital Signs: Last Vital Signs Temp 98.1 F 09/16/16 07:15 Pulse 69 09/16/16 07:15 Resp 20 09/16/16 07:15 BP 167/76 H 09/16/16 07:15 Pulse Ox 95 09/16/16 07:15 - Labs Result Diagrams: 09/16/16 00:48 09/16/16 00:48 Assessment & Plan (1) S/P TKR (total knee replacement) Assessment and Plan: cellulitis d/w Dr. Merida xr/CT/ESR/CRP will follow Status: Chronic
[2016-09-16] MEDS ORDERED: cefTRIAXone 2 GM in Sodium Chloride 0.9% 100 ML IVPB SCH (10:00)
[2016-09-16] MEDS ORDERED: cefTRIAXone (Rocephin) 2 gm Inj IVPB SCH (10:00)
[2016-09-16] MEDS: Lidocaine 5% Patch TD SCH (10:11)
--- NOTE | 2016-09-16 11:12 | RAD ---
Left knee two views History: Pain and swelling. Comparison: None available. Findings: Diffuse soft tissue swelling consistent with known cellulitis. Suprapatellar joint effusion. Extensive vascular calcifications. Status post left total knee arthroplasty with patellar resurfacing. Some heterotopic bone formation at the inferior bony patella. Prosthesis device appears preserved. Heterotopic bone formation adjacent to the medial femoral condyle. Suggestion of some debris and or loose bodies at the femorotibial joint space. No evidence for acute displaced fracture or dislocation. Impression: Diffuse soft tissue swelling consistent with known cellulitis. Suprapatellar joint effusion. Extensive vascular calcifications. Status post left total knee arthroplasty with patellar resurfacing. Some heterotopic bone formation at the inferior bony patella. Prosthesis device appears preserved. Heterotopic bone formation adjacent to the medial femoral condyle. Suggestion of some debris and or loose bodies at the femorotibial joint space. No evidence for acute displaced fracture or dislocation. If pain persists, consider further evaluation with nuclear medicine study and or MRI.
[2016-09-16] MEDS: Acetaminophen-Codeine 300/30 mg Tab PO PRN ×2 (12:20→20:09)
--- NOTE | 2016-09-16 15:06 | CP.PCM.CON ---
History of Present Illness - History of Present Illness History of Present Illness: 86 y/o female presents to ED with c/o left knee pain and swelling after her knee replacement procedure. Patient seen in ER 2 weeks ago, admitted to hospital , with CT scan and abx. Denies fall or trauma, fever, chills, nausea, or vomiting. No other complaints at this time. being treated with antibiotics after recent CT showed suprapatellar collection seen by ortho conservative rx with antibiotic rx was recommended swelling redness and warmth less Vanco in progress - Medical History PMH: Arthritis, Cardia Arrhythmia, Depression, Fractures (right hip), HTN, Hypercholesterolemia, Osteoporosis Surgical History: Endoscopy, Pacemaker Review of Systems - Constitutional Constitutional: absent: As Per HPI, Anorexia, Chills, Daytime Sleepiness, Excessive Sweating, Fatigue, Fever, Frequent Falls, Headache, Increased Appetite , Lethargy, Malaise, Night Sweats, Snoring, Sleep Apnea, Weight Gain, Weight Loss, Weakness, Other - EENT Eyes: absent: As Per HPI, Blind Spots, Blurred Vision, Change in Vision, Decreased Night Vision, Diplopia, Discharge, Dry Eye, Exophthalmos, Floaters, Irritation, Itchy Eyes, Loss of Peripheral Vision, Pain, Photophobia, Requires Corrective Lenses, Sees Flashes, Spots in Vision, Tunnel Vision, Other Visual Disturbances, Loss of Vision, Other Ears: absent: As Per HPI, Decreased Hearing, Ear Discharge, Ear Pain, Tinnitus, Abnormal Hearing, Disequilibrium, Dizziness, Other Nose/Mouth/Throat: absent: As Per HPI, Epistaxis, Nasal Congestion, Nasal Discharge, Nasal Obstruction, Nasal Trauma, Nose Pain, Post Nasal Drip, Sinus Pain, Sinus Pressure, Bleeding Gums, Change in Voice, Dental Pain, Dry Mouth, Dysphagia, Halitosis, Hoarsness, Lip Swelling, Mouth Lesions, Mouth Pain, Odynophagia, Sore Throat, Throat Swelling, Tongue Swelling, Facial Pain, Neck Pain, Neck Mass, Other - Breasts Breasts: absent: As Per HPI, Change in Shape, Mass, Pain, Nipple Discharge, Nipple Inversion, Skin Changes, Swelling, Other - Cardiovascular Cardiovascular: absent: As Per HPI, Acrocyanosis, Chest Pain, Chest Pain at Rest , Chest Pain with Activity, Claudication, Diaphoresis, Dyspnea, Dyspnea on Exertion, Edema, Irregular Heart Rhythm, Pain Radiating to Arm/Neck/Jaw, Leg Edema, Leg Ulcers, Lightheadedness, Orthopnea, Palpitations, Paroxysmal Nocturnal Dyspnea, Pedal Edema, Radiating Pain, Rapid Heart Rate, Slow Heart Rate, Syncope, Other - Respiratory Respiratory: absent: As Per HPI, Cough, Dyspnea, Hemoptysis, Dyspnea on Exertion , Wheezing, Snoring, Stridor, Pain on Inspiration, Chest Congestion, Excessive Mucous Production, Change in Mucous Color, Pain with Coughing, Other - Gastrointestinal Gastrointestinal: absent: As Per HPI, Abdominal Pain, Belching, Bloating, Change in Bowel Habits, Change in Stool Character, Coffee Ground Emesis, Constipation, Cramping, Diarrhea, Dyspepsia, Dysphagia, Early Satiety, Excessive Flatus, Fecal Incontinence, Heartburn, Hematemesis, Hematochezia, Loose Stools, Melena, Nausea, Odynophagia, Temesmus, Vomiting, Other - Genitourinary Genitourinary: absent: As Per HPI, Change in Urinary Stream, Difficulty Urinating, Dysuria, Flank Pain, Hematuria, Pyuria, Nocturia, Urinary Incontinence, Urinary Frequency, Urinary Hesitance, Urinary Urgency, Voiding Freq/Small Amts, Freq UTI, Hx Renal/Bladder Calculi, Hx /Renal Surgery, Bladder Distension, Other - Reproductive: Female Reproductive:Female: absent: As Per HPI, Amenorrhea, Amenorrhea/ Control, Currently Menstual, Cycle <21 Days, Cycle >35 Days, Cycle Variable, Menses 1-7 Days, Menses >/= 8 Days, Menses Variable, Cycle > 4 Weeks Between, No Menses for 6 Months, Heavy Menses, Light Menses, Normal Menses, Spotting Between Cycles , S/P Hysterectomy, Menopausal, Post Menopausal, Premenarche, Abnormal Vaginal Bleeding, Dysmenorrhea, Dyspareunia, Genital Lesions, Genital Pruritis, Pelvic Pain, Prolapse Symptoms, Sexual Dysfunction, Vaginal Discharge, Vaginal Dryness , Vaginal Odor, Vaginal Pruritis, Other - Menstruation Menstruation: absent: As Per HPI, Amenorrhea, Amenorrhea/ Control, Currently Menstual, Cycle <21 Days, Cycle >35 Days, Cycle Variable, Menses 1-7 Days, Menses >/= 8 Days, Menses Variable, Cycle > 4 Weeks Between, No Menses for 6 Months, Heavy Menses, Light Menses, Normal Menses, Spotting Between Cycles , S/P Hysterectomy, Menopausal, Post Menopausal, Premenarche, Abnormal Vaginal Bleeding, Dysmenorrhea, Other - Musculoskeletal Musculoskeletal: absent: As Per HPI, Abnormal Gait, Arthralgias, Atrophy, Back Pain, Deformity, Joint Swelling, Limited Range of Motion, Loss of Height, Muscle Cramps, Muscle Weakness, Myalgias, Neck Pain, Numbness, Radiating Pain into Limb, Stiffness, Tingling, Other - Integumentary Integumentary: absent: As Per HPI, Acne, Alopecia, Bleeding Lesions, Change in Hair, Change in Nails, Change in Pigmentation, Changing Lesions, Dry Skin, Erythema, Furuncle, Hirsutism, Lesions, New Lesions, Non-Healing Lesions, Photosensitivity, Pruritus, Rash, Skin Pain, Skin Ulcer, Sores, Striae, Swelling , Unusual Bruising, Wounds, Jaundice, Other - Neurological Neurological: absent: As Per HPI, Abnormal Gait, Abnormal Hearing, Abnormal Movements, Abnormal Speech, Behavioral Changes, Burning Sensations, Confusion, Convulsions, Disequilibrium, Dizziness, Numbness, Focal Weakness, Frequent Falls , Headaches, Lack of Coordination, Loss of Vision, Memory Loss, Paresthesias, Radicular Pain, Restless Legs, Sensory Deficit, Syncope, Tingling, Tremor, Vertigo, Weakness, Other Visual Disturbances, Other - Psychiatric Psychiatric: absent: As Per HPI, Abnormal Sleep Pattern, Anhedonia, Anxiety, Auditory Hallucinations, Behavioral Changes, Change in Appetite, Change in Libido, Confusion, Depression, Difficulty Concentrating, Hallucinations, Homicidal Ideation, Hopelessness, Irritability, Memory Loss, Mood Swings, Panic Attacks, Paranoia, Suicidal Ideation, Visual Hallucinations, Tactile Hallucinations, Other - Endocrine Endocrine: absent: As Per HPI, Change in Body Appearance, Change in Libido, Cold Intolorance, Deepening of Voice, Excessive Sweating, Fatigue, Flushing, Heat Intolorance, Increase in Ring/Shoe/Hat Size, Palpitations, Polydipsia, Polyphagia, Polyuria, Other - Hematologic/Lymphatic Hematologic: absent: As Per HPI, Easy Bleeding, Easy Bruising, Lymphadenopathy, Other Past Patient History - Infectious Disease Hx of Infectious Diseases: None - Tetanus Immunizations Tetanus Immunization: Unknown - Past Medical History & Family History Past Medical History?: Yes - Past Social History Smoking Status: Never Smoked - CARDIAC Hx Cardia Arrhythmia: Yes Hx Hypercholesterolemia: Yes Hx Hypertension: Yes Hx Pacemaker: Yes - HEENT Hx HEENT Problems: No - INTEGUMENTARY Hx Dermatological Problems: No - MUSCULOSKELETAL/RHEUMATOLOGICAL Hx Arthritis: Yes Hx Fractures: Yes (right hip) Hx Osteoporosis: Yes - PSYCHIATRIC Hx Depression: Yes Hx Substance Use: No - SURGICAL HISTORY Hx Joint Replacement: Yes (L TKR 12/09/15) - ANESTHESIA Hx Anesthesia: Yes Hx Anesthesia Reactions: Yes (Confusion , Hallucination ) Hx Malignant Hyperthermia: No Meds Allergies/Adverse Reactions: Allergies Allergy/AdvReac Type Severity Reaction Status Date / Time Iodinated Contrast Media - Allergy fainting Verified 09/15/16 22:05 Oral and iodine dye AdvReac fainting Uncoded 09/15/16 22:04 - Medications Medications: Current Medications Acetaminophen/Codeine Phosphate (Tylenol/Codeine 300 Mg/30 Mg) 1 ea PO Q4 PRN PRN Reason: Pain, severe (8-10) Last Admin: 09/16/16 12:20 Dose: 1 ea Amlodipine Besylate (Norvasc) 5 mg PO DAILY [facility] Last Admin: 09/16/16 10:11 Dose: 5 mg Duloxetine HCl (Cymbalta) 30 mg PO DAILY [facility] Last Admin: 09/16/16 10:11 Dose: 30 mg Famotidine (Pepcid) 20 mg PO DAILY [facility] Last Admin: 09/16/16 10:11 Dose: 20 mg Heparin Sodium (Porcine) (Heparin) 5,000 units SC Q8 [facility] Last Admin: 09/16/16 14:16 Dose: 5,000 units Sodium Chloride (Sodium Chloride 0.9%) 1,000 mls @ 100 mls/hr IV .Q10H [facility] Last Admin: 09/16/16 12:05 Dose: Not Given Ceftriaxone Sodium 2 gm/ (Sodium Chloride) 100 mls @ 100 mls/hr IVPB DAILY [facility] Last Admin: 09/16/16 10:30 Dose: 100 mls/hr Ibuprofen (Motrin Tab) 600 mg PO BID PRN PRN Reason: Pain, Mild (1-3) Last Admin: 09/16/16 03:39 Dose: 600 mg Lidocaine (Lidoderm) 1 ea TD DAILY [facility] Last Admin: 09/16/16 10:11 Dose: 1 ea Losartan Potassium (Cozaar) 50 mg PO DAILY [facility] Last Admin: 09/16/16 10:11 Dose: 50 mg Magnesium Hydroxide (Milk Of Magnesia) 30 ml PO DAILY PRN PRN Reason: Constipation Rosuvastatin Calcium (Crestor) 10 mg PO HS [facility] Sotalol HCl (Betapace) 80 mg PO Q12 [facility] Last Admin: 09/16/16 10:30 Dose: 80 mg Physical Exam - Constitutional Appears: Non-toxic, Chronically Ill - Head Exam Head Exam: NORMOCEPHALIC - Eye Exam Eye Exam: PERRL. absent: Scleral icterus - ENT Exam ENT Exam: Mucous Membranes Dry - Neck Exam Neck exam: Negative for: Lymphadenopathy - Respiratory Exam Respiratory Exam: Decreased Breath Sounds, Clear to Auscultation Bilateral - Cardiovascular Exam Cardiovascular Exam: REGULAR RHYTHM - GI/Abdominal Exam GI & Abdominal Exam: Diminished Bowel Sounds - Rectal Exam Rectal Exam: Deferred - Exam Exam: NORMAL INSPECTION - Extremities Exam Extremities exam: Negative for: calf tenderness, normal inspection, pedal edema - Back Exam Back exam: absent: CVA tenderness (L), CVA tenderness (R), paraspinal tenderness - Neurological Exam Neurological exam: Alert, CN II-XII Intact, Oriented x3, Reflexes Normal - Psychiatric Exam Psychiatric exam: Normal Mood - Skin Skin Exam: Dry Results - Vital Signs Recent Vital Signs: Last Vital Signs Temp 98.1 F 09/16/16 07:15 Pulse 69 09/16/16 07:15 Resp 20 09/16/16 07:15 BP 167/76 H 09/16/16 07:15 Pulse Ox 95 09/16/16 07:15 - Labs Result Diagrams: 09/16/16 00:48 09/16/16 00:48 Labs: Laboratory Results - last 24 hr 09/16/16 09/16/16 11:34 11:34 ESR 53 H C-React Prot High Sens > 15.00 H Assessment & Plan (1) Cellulitis Status: Acute (2) Knee pain Status: Acute (3) S/P TKR (total knee replacement) Status: Chronic - Assessment and Plan (Free Text) Assessment: CONT IV RX ORTHO EVAL AND FOLLOW UP
--- NOTE | 2016-09-16 23:30 | CP.PCM.HP ---
History of Present Illness - History of Present Illness History of Present Illness: CC: Left knee pain 86F s/p Left TKR nov 2015 readmitted for left knee discoloration. She says while at [facility], when they came in for rounds last night they noticed the "black and blue" around her knee and sent her to ER. She denies any recent trauma/falls/injury. Says she has been doing PT.Denies fever/chills/nausea/ vomiting/CP/SOB/numbness/tingling. Present on Admission - Present on Admission Any Indicators Present on Admission: Yes Review of Systems - Review of Systems Systems not reviewed;Unavailable: Acuity of Condition - Musculoskeletal Musculoskeletal: Joint Swelling, Limited Range of Motion Past Patient History - Infectious Disease Hx of Infectious Diseases: None - Tetanus Immunizations Tetanus Immunization: Unknown - Past Medical History & Family History Past Medical History?: Yes - Past Social History Smoking Status: Never Smoked - CARDIAC Hx Cardia Arrhythmia: Yes Hx Hypercholesterolemia: Yes Hx Hypertension: Yes Hx Pacemaker: Yes - HEENT Hx HEENT Problems: No - INTEGUMENTARY Hx Dermatological Problems: No - MUSCULOSKELETAL/RHEUMATOLOGICAL Hx Arthritis: Yes Hx Fractures: Yes (right hip) Hx Osteoporosis: Yes - PSYCHIATRIC Hx Depression: Yes Hx Substance Use: No - SURGICAL HISTORY Hx Joint Replacement: Yes (L TKR 12/09/15) - ANESTHESIA Hx Anesthesia: Yes Hx Anesthesia Reactions: Yes (Confusion , Hallucination ) Hx Malignant Hyperthermia: No Meds Allergies/Adverse Reactions: Allergies Allergy/AdvReac Type Severity Reaction Status Date / Time Iodinated Contrast- Oral and Allergy fainting Verified 09/15/16 22:05 IV Dye iodine dye AdvReac fainting Uncoded 09/15/16 22:04 Physical Exam - Constitutional Appears: No Acute Distress - Head Exam Head Exam: ATRAUMATIC, NORMAL INSPECTION, NORMOCEPHALIC - Eye Exam Eye Exam: EOMI, Normal appearance, PERRL Pupil Exam: NORMAL ACCOMODATION, PERRL - Respiratory Exam Respiratory Exam: Clear to Auscultation Bilateral, NORMAL BREATHING PATTERN - Cardiovascular Exam Cardiovascular Exam: REGULAR RHYTHM - GI/Abdominal Exam GI & Abdominal Exam: Normal Bowel Sounds, Soft. absent: Tenderness - Extremities Exam Extremities exam: Positive for: joint swelling, tenderness Results - Vital Signs Recent Vital Signs: Last Vital Signs Temp 98.5 F 09/16/16 15:00 Pulse 62 09/16/16 15:00 Resp 20 09/16/16 15:00 BP 131/63 09/16/16 15:00 Pulse Ox 93 L 09/16/16 15:00 - Labs Result Diagrams: 09/19/16 13:22 09/19/16 13:22 Labs: Laboratory Results - last 24 hr 09/16/16 09/16/16 11:34 11:34 ESR 53 H C-React Prot High Sens > 15.00 H Assessment & Plan (1) Cellulitis Status: Acute (2) Knee pain Status: Acute (3) Septic arthritis of knee Status: Acute Priority: High
[2016-09-17] MEDS: Sodium Chloride 0.9% 1,000 ML IV SCH ×2 (06:45→19:01)
[2016-09-17] MEDS: Lidocaine 5% Patch TD SCH (10:57)
--- NOTE | 2016-09-17 12:49 | CT ---
PROCEDURE: CT left knee HISTORY: KNEE SWELLING COMPARISON: 09/05/2016 TECHNIQUE: 2.5 mm contiguous axial sections were acquired through the left knee. Sagittal and coronal images were reformatted from the axial images. The examination is limited due to extensive beam hardening artifact arising from the left knee prosthesis. FINDINGS: The patient is status post left knee arthroplasty. Cemented tibial and femoral components are noted. There is no evidence of prosthesis loosening. There is no dislocation. There is no osseous fracture. There is skin thickening seen over the anterior aspect of the knee which may be related to arthroplasty surgery. This is unchanged from prior CT examination. There is no significant edema or stranding of the subcutaneous fat about the knee. There is a suprapatellar complex collection of intermediate attenuation. Cannot rule out infected collection. Please correlate clinically. There are several nodular calcifications seen within the right lateral aspect of this collection. These may represent loose osteochondral bodies. This collection is unchanged in size and morphology compared to the prior CT examination. 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 This measures approximately 2.4 x 1.6 x 5.8 cm. IMPRESSION: No evidence of abscess. Suprapatellar collection, complex containing several nodular calcifications. Cannot rule out infected collection. Skin thickening over anterior knee most likely with the result of prior surgery. No evidence of deep soft tissue cellulitis. Preliminary interpretation of this examination was reported by [facility] at 2:52 p.m. on 09/16/2016. There is concurrence of this report with the preliminary interpretation.
[2016-09-17] MEDS: Acetaminophen-Codeine 300/30 mg Tab PO PRN (17:29)
--- NOTE | 2016-09-17 23:16 | CP.PCM.PN ---
Subjective - Date & Time of Evaluation Date of Evaluation: 09/17/16 Time of Evaluation: 20:40 - Subjective Subjective: seen and examined,continues to c/o right knee, decresaed redness and swelling Objective - Vital Signs/Intake and Output Vital Signs (last 24 hours): Temp Pulse Resp BP Pulse Ox 98.6 F 60 20 135/68 96 09/17/16 15:00 09/17/16 15:00 09/17/16 15:00 09/17/16 15:00 09/17/16 15:00 Intake and Output: 09/17/16 09/18/16 18:59 06:59 Intake Total 550 Balance 550 - Medications Medications: Current Medications Acetaminophen/Codeine Phosphate (Tylenol/Codeine 300 Mg/30 Mg) 1 ea PO Q4 PRN PRN Reason: Pain, severe (8-10) Last Admin: 09/17/16 17:29 Dose: 1 ea Amlodipine Besylate (Norvasc) 5 mg PO DAILY [facility] Last Admin: 09/17/16 10:56 Dose: 5 mg Duloxetine HCl (Cymbalta) 30 mg PO DAILY [facility] Last Admin: 09/17/16 10:55 Dose: 30 mg Famotidine (Pepcid) 20 mg PO DAILY [facility] Last Admin: 09/17/16 10:55 Dose: 20 mg Heparin Sodium (Porcine) (Heparin) 5,000 units SC Q8 [facility] Last Admin: 09/17/16 21:32 Dose: 5,000 units Sodium Chloride (Sodium Chloride 0.9%) 1,000 mls @ 100 mls/hr IV .Q10H [facility] Last Admin: 09/17/16 19:01 Dose: 100 mls/hr Vancomycin HCl 1 gm/ Sodium (Chloride) 250 mls @ 166.7 mls/hr IVPB Q24H [facility] Last Admin: 09/17/16 17:32 Dose: 166.7 mls/hr Ibuprofen (Motrin Tab) 600 mg PO BID PRN PRN Reason: Pain, Mild (1-3) Last Admin: 09/17/16 21:36 Dose: 600 mg Lidocaine (Lidoderm) 1 ea TD DAILY [facility] Last Admin: 09/17/16 10:57 Dose: 1 ea Losartan Potassium (Cozaar) 50 mg PO DAILY [facility] Last Admin: 09/17/16 10:58 Dose: 50 mg Magnesium Hydroxide (Milk Of Magnesia) 30 ml PO DAILY PRN PRN Reason: Constipation Rosuvastatin Calcium (Crestor) 10 mg PO HS [facility] Last Admin: 09/17/16 21:31 Dose: 10 mg Sotalol HCl (Betapace) 80 mg PO Q12 [facility] Last Admin: 09/17/16 21:31 Dose: 80 mg - Labs Labs: PT 11.1 SECONDS (9.7-12.2) 09/16/16 00:48 INR 1.0 09/16/16 00:48 APTT 32 SECONDS (21-34) 09/16/16 00:48 - Constitutional Appears: No Acute Distress - Head Exam Head Exam: ATRAUMATIC, NORMAL INSPECTION, NORMOCEPHALIC - Eye Exam Eye Exam: EOMI, Normal appearance, PERRL Pupil Exam: NORMAL ACCOMODATION, PERRL - Respiratory Exam Respiratory Exam: Clear to Ausculation Bilateral, NORMAL BREATHING PATTERN - Cardiovascular Exam Cardiovascular Exam: REGULAR RHYTHM, +S1, +S2. absent: Murmur - GI/Abdominal Exam GI & Abdominal Exam: Soft, Normal Bowel Sounds. absent: Tenderness - Extremities Exam Extremities Exam: Joint Swelling, Tenderness - Back Exam Back Exam: NORMAL INSPECTION Assessment and Plan (1) Cellulitis Status: Acute (2) Knee pain Status: Acute (3) Septic arthritis of knee Assessment & Plan: infectious dis eval on antibiotics Status: Acute
[2016-09-18] MEDS: Acetaminophen-Codeine 300/30 mg Tab PO PRN ×3 (01:30→21:02)
[2016-09-18] MEDS: Sodium Chloride 0.9% 1,000 ML IV SCH (03:00)
[2016-09-18] MEDS: Lidocaine 5% Patch TD SCH (11:39)
--- NOTE | 2016-09-18 15:58 | CP.PCM.PN ---
Subjective - Date & Time of Evaluation Date of Evaluation: 09/18/16 Time of Evaluation: 09:00 - Subjective Subjective: SWELLING AND PAIN LESS 'SEEN BY ORTHO CONT CONSERVATIVE RX Objective - Vital Signs/Intake and Output Vital Signs (last 24 hours): Temp Pulse Resp BP Pulse Ox 98.4 F 62 20 169/77 H 95 09/18/16 07:48 09/18/16 07:48 09/18/16 07:48 09/18/16 07:48 09/18/16 07:48 Intake and Output: 09/18/16 09/18/16 06:59 18:59 Intake Total 1100 920 Balance 1100 920 - Medications Medications: Current Medications Acetaminophen/Codeine Phosphate (Tylenol/Codeine 300 Mg/30 Mg) 1 ea PO Q4 PRN PRN Reason: Pain, severe (8-10) Last Admin: 09/18/16 01:30 Dose: 1 ea Amlodipine Besylate (Norvasc) 5 mg PO DAILY [facility] Last Admin: 09/18/16 11:40 Dose: 5 mg Duloxetine HCl (Cymbalta) 30 mg PO DAILY [facility] Last Admin: 09/18/16 11:39 Dose: 30 mg Famotidine (Pepcid) 20 mg PO DAILY [facility] Last Admin: 09/18/16 11:38 Dose: 20 mg Heparin Sodium (Porcine) (Heparin) 5,000 units SC Q8 [facility] Last Admin: 09/18/16 14:10 Dose: 5,000 units Sodium Chloride (Sodium Chloride 0.9%) 1,000 mls @ 100 mls/hr IV .Q10H [facility] Last Admin: 09/18/16 03:00 Dose: 100 mls/hr Vancomycin HCl 1 gm/ Sodium (Chloride) 250 mls @ 166.7 mls/hr IVPB Q24H [facility] Last Admin: 09/17/16 17:32 Dose: 166.7 mls/hr Ibuprofen (Motrin Tab) 600 mg PO BID PRN PRN Reason: Pain, Mild (1-3) Last Admin: 09/18/16 11:39 Dose: 600 mg Lidocaine (Lidoderm) 1 ea TD DAILY [facility] Last Admin: 09/18/16 11:39 Dose: 1 ea Losartan Potassium (Cozaar) 50 mg PO DAILY [facility] Last Admin: 09/18/16 11:38 Dose: 50 mg Magnesium Hydroxide (Milk Of Magnesia) 30 ml PO DAILY PRN PRN Reason: Constipation Rosuvastatin Calcium (Crestor) 10 mg PO HS [facility] Last Admin: 09/17/16 21:31 Dose: 10 mg Sotalol HCl (Betapace) 80 mg PO Q12 [facility] Last Admin: 09/18/16 11:38 Dose: 80 mg - Labs Labs: PT 11.1 SECONDS (9.7-12.2) 09/16/16 00:48 INR 1.0 09/16/16 00:48 APTT 32 SECONDS (21-34) 09/16/16 00:48 - Constitutional Appears: Non-toxic - Head Exam Head Exam: NORMOCEPHALIC - Eye Exam Eye Exam: PERRL. absent: Scleral icterus - ENT Exam ENT Exam: Mucous Membranes Dry, Normal External Ear Exam - Neck Exam Neck Exam: absent: Lymphadenopathy - Respiratory Exam Respiratory Exam: Decreased Breath Sounds, Clear to Ausculation Bilateral - Cardiovascular Exam Cardiovascular Exam: REGULAR RHYTHM - GI/Abdominal Exam GI & Abdominal Exam: Distended, Soft - Rectal Exam Rectal Exam: Deferred - Exam Exam: NORMAL INSPECTION - Extremities Exam Extremities Exam: absent: Calf Tenderness, Full ROM, Pedal Edema, Tenderness - Back Exam Back Exam: absent: CVA tenderness (L), CVA tenderness (R) - Neurological Exam Neurological Exam: Alert, Awake, Oriented x3 Assessment and Plan - Assessment and Plan (Free Text) Plan: CONT RX FOR RIGHT KNEE EFFUSION/ INFECTION NO SURGERY PER DR HAILE
--- NOTE | 2016-09-19 09:44 | CP.PCM.PN ---
Subjective - Date & Time of Evaluation Date of Evaluation: 09/19/16 Time of Evaluation: 09:41 - Subjective Subjective: Patient states that her knee feels much better. She is able to move it without pain at this time. She says that when she was doing PT at the rehab (walking/ bike) that is when her knee got black and blue, but now she feels much better. Review of Systems - Review of Systems All systems: reviewed and no additional remarkable complaints except - Cardiovascular Cardiovascular: UNREMARKABLE - Musculoskeletal Musculoskeletal: As Par HPI - Integumentary Integumentary: As Per HPI - Neurological Neurological: UNREMARKABLE - Hematologic/Lymphatic Hematologic: UNREMARKABLE Objective - Vital Signs/Intake and Output Vital Signs (last 24 hours): Temp Pulse Resp BP Pulse Ox 97.5 F L 65 20 155/72 H 96 09/19/16 08:00 09/19/16 08:00 09/19/16 08:00 09/19/16 08:00 09/19/16 08:00 Intake and Output: 09/19/16 09/19/16 06:59 18:59 Intake Total 300 Balance 300 - Medications Medications: Current Medications Acetaminophen/Codeine Phosphate (Tylenol/Codeine 300 Mg/30 Mg) 1 ea PO Q4 PRN PRN Reason: Pain, severe (8-10) Last Admin: 09/18/16 21:02 Dose: 1 ea Amlodipine Besylate (Norvasc) 5 mg PO DAILY [facility] Last Admin: 09/18/16 11:40 Dose: 5 mg Duloxetine HCl (Cymbalta) 30 mg PO DAILY [facility] Last Admin: 09/18/16 11:39 Dose: 30 mg Famotidine (Pepcid) 20 mg PO DAILY [facility] Last Admin: 09/18/16 11:38 Dose: 20 mg Vancomycin HCl 1 gm/ Sodium (Chloride) 250 mls @ 166.7 mls/hr IVPB Q24H [facility] Last Admin: 09/18/16 21:06 Dose: Not Given Ibuprofen (Motrin Tab) 600 mg PO BID PRN PRN Reason: Pain, Mild (1-3) Last Admin: 09/18/16 11:39 Dose: 600 mg Lidocaine (Lidoderm) 1 ea TD DAILY [facility] Last Admin: 09/18/16 11:39 Dose: 1 ea Losartan Potassium (Cozaar) 50 mg PO DAILY [facility] Last Admin: 09/18/16 11:38 Dose: 50 mg Magnesium Hydroxide (Milk Of Magnesia) 30 ml PO DAILY PRN PRN Reason: Constipation Rosuvastatin Calcium (Crestor) 10 mg PO HS [facility] Last Admin: 09/18/16 21:02 Dose: 10 mg Sotalol HCl (Betapace) 80 mg PO Q12 [facility] Last Admin: 09/18/16 21:02 Dose: 80 mg - Labs Labs: PT 11.1 SECONDS (9.7-12.2) 09/16/16 00:48 INR 1.0 09/16/16 00:48 APTT 32 SECONDS (21-34) 09/16/16 00:48 - Constitutional Appears: Well, No Acute Distress - Respiratory Exam Respiratory Exam: NORMAL BREATHING PATTERN - Extremities Exam Additional comments: Left knee: Significantly less warm, area of erythema/ecchymosis improved. Knee much less warm. Full AROM 0=110 without pain. Swelling improved. Knee much less tender. - Neurological Exam Neurological Exam: Alert, Awake, Oriented x3 Neuro motor strength exam: Left Lower Extremity: 5 (+DF/PF ankle) - Skin Skin Exam: Dry, Intact, Warm Additional comments: ecchymosis significantly improved from 09/16 Assessment and Plan (1) S/P TKR (total knee replacement) Assessment & Plan: Improving afebrile, CRP up but ESR down from last visit Discolored area is now significantly improving No pain with knee ROM at this time no orthopedic intervention planned at this time continue antibiotics as per Dr. Treva kirkpatrick stable for transfer to rehab d/w Dr. Merida, agrees with above Status: Chronic Radiology Interpretation - Director Employee Safety And Health Director Employee Safety And Health:: Radiologist - Radiology Interpretation #2 Interpretation: Patient Name / ID : HERBIE MEYERS / [id number] Exam Date : 09/16/2016 12:55:01 ( Approved ) Study Comment : Sex / Age : F / 86Y Creator : Dany Willis MD Dictator : Dany Willis MD Undercoater : Cardiac Sonographer : Dany Willis MD Approver2 : Report Date : 09/17/2016 12:42:01 My Comment : PROCEDURE: CT left knee HISTORY: KNEE SWELLING COMPARISON: 09/05/2016 TECHNIQUE: 2.5 mm contiguous axial sections were acquired through the left knee. Sagittal and coronal images were reformatted from the axial images. The examination is limited due to extensive beam hardening artifact arising from the left knee prosthesis. FINDINGS: The patient is status post left knee arthroplasty. Cemented tibial and femoral components are noted. There is no evidence of prosthesis loosening. There is no dislocation. There is no osseous fracture. There is skin thickening seen over the anterior aspect of the knee which may be related to arthroplasty surgery. This is unchanged from prior CT examination. There is no significant edema or stranding of the subcutaneous fat about the knee. There is a suprapatellar complex collection of intermediate attenuation. Cannot rule out infected collection. Please correlate clinically. There are several nodular calcifications seen within the right lateral aspect of this collection. These may represent loose osteochondral bodies. This collection is unchanged in size and morphology compared to the prior CT examination. 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 This measures approximately 2.4 x 1.6 x 5.8 cm. IMPRESSION: No evidence of abscess. Suprapatellar collection, complex containing several nodular calcifications. Cannot rule out infected collection. Skin thickening over anterior knee most likely with the result of prior surgery. No evidence of deep soft tissue cellulitis. Preliminary interpretation of this examination was reported by [facility] at 2:52 p.m. on 09/16/2016. There is concurrence of this report with the preliminary interpretation. - Radiology Interpretation #3 Interpretation: Patient Name / ID : HERBIE MEYERS / [id number] Exam Date : 09/16/2016 09:13:17 ( Approved ) Study Comment : Sex / Age : F / 86Y Creator : Eddie Caldwell MD Dictator : Eddie Caldwell MD Undercoater : Cardiac Sonographer : Eddie Caldwell MD Approver2 : Report Date : 09/16/2016 11:10:35 My Comment : Left knee two views History: Pain and swelling. Comparison: None available. Findings: Diffuse soft tissue swelling consistent with known cellulitis. Suprapatellar joint effusion. Extensive vascular calcifications. Status post left total knee arthroplasty with patellar resurfacing. Some heterotopic bone formation at the inferior bony patella. Prosthesis device appears preserved. Heterotopic bone formation adjacent to the medial femoral condyle. Suggestion of some debris and or loose bodies at the femorotibial joint space. No evidence for acute displaced fracture or dislocation. Impression: Diffuse soft tissue swelling consistent with known cellulitis. Suprapatellar joint effusion. Extensive vascular calcifications. Status post left total knee arthroplasty with patellar resurfacing. Some heterotopic bone formation at the inferior bony patella. Prosthesis device appears preserved. Heterotopic bone formation adjacent to the medial femoral condyle. Suggestion of some debris and or loose bodies at the femorotibial joint space. No evidence for acute displaced fracture or dislocation. If pain persists, consider further evaluation with nuclear medicine study and or MRI.
[2016-09-19] MEDS: Lidocaine 5% Patch TD SCH (10:51)
--- NOTE | 2016-09-19 12:08 | RAD ---
Chest x-ray single frontal view History: PICC line. Comparison: 08/20/2016 Findings: Right PICC line with tip extending to the right SVC. No evidence of postprocedure pneumothorax. Biapical pleural thickening with upper lobe granulomatous changes. Left basilar airspace opacity with question left-sided pleural effusion. Right hilar prominence. Cardiomegaly. Calcification at the aortic knob. Degenerative changes in the spine and shoulders. Left-sided pacemaker. Impression: Right PICC line with tip extending to the right SVC. No evidence of postprocedure pneumothorax. Biapical pleural thickening with upper lobe granulomatous changes. Left basilar airspace opacity with question left-sided pleural effusion. Right hilar prominence. Cardiomegaly. Calcification at the aortic knob.
[2016-09-19 13:29] LABS: BASO # 0.1 K/uL (0.0-0.2); BASO % 1.3 % (0.0-2.0); EOS # 0.3 K/uL (0.0-0.7); EOS % 3.9 % (0.0-4.0); HEMOGLOBIN 12.3 g/dL (11.0-16.0); LYMPH # 1.5 K/uL (1.0-4.3); LYMPH % 24.2 % (20.0-40.0); MEAN CELL VOLUME 90.1 fL (81.0-99.0); MEAN CORPUSCULAR HGB CONC 32.1 g/dL (33.0-37.0); MEAN PLATELET VOLUME 7.8 fL (7.2-11.7); MONO # 0.6 K/uL (0.0-0.8); MONO % 9.1 % (0.0-10.0); NEUT # 3.9 K/uL (1.8-7.0); NEUT % 61.5 % (50.0-75.0); NRBC % 0.1 % (0.0-2.0); RBC 4.24 Mil/uL (3.80-5.20); RED CELL DISTRIBUTION WIDTH 13.9 % (11.5-14.5); WHITE BLOOD COUNT 6.4 K/uL (4.8-10.8)
[2016-09-19 13:47] LABS: BLOOD UREA NITROGEN 9 mg/dL (7-17); GFR AFRICAN-AMERICAN > 60; GFR NON-AFRICAN AMERICAN > 60
[2016-09-19] MEDS ORDERED: Potassium Chloride 20 mEq ER Tab PO STA (14:23)
[2016-09-19] MEDS: Acetaminophen-Codeine 300/30 mg Tab PO PRN (20:25)
--- NOTE | 2016-09-19 22:49 | CP.PCM.PN ---
Subjective - Date & Time of Evaluation Date of Evaluation: 09/18/16 Time of Evaluation: 11:00 - Subjective Subjective: Patient states that her knee feels much better. She is able to move it without pain at this time. She says that when she was doing PT at the rehab (walking/ bike) that is when her knee got black and blue, but now she feels much better. Objective - Vital Signs/Intake and Output Vital Signs (last 24 hours): Temp Pulse Resp BP Pulse Ox 98.3 F 76 20 149/72 97 09/19/16 15:00 09/19/16 22:03 09/19/16 15:00 09/19/16 22:03 09/19/16 15:00 Intake and Output: 09/19/16 09/20/16 18:59 06:59 Intake Total 650 Balance 650 - Medications Medications: Current Medications Acetaminophen/Codeine Phosphate (Tylenol/Codeine 300 Mg/30 Mg) 1 ea PO Q4 PRN PRN Reason: Pain, severe (8-10) Last Admin: 09/19/16 20:25 Dose: 1 ea Amlodipine Besylate (Norvasc) 5 mg PO DAILY [facility] Last Admin: 09/19/16 11:00 Dose: 5 mg Duloxetine HCl (Cymbalta) 30 mg PO DAILY [facility] Last Admin: 09/19/16 10:52 Dose: 30 mg Famotidine (Pepcid) 20 mg PO DAILY [facility] Last Admin: 09/19/16 10:59 Dose: 20 mg Heparin Sodium (Porcine) (Heparin) 5,000 units SC Q8 [facility] Last Admin: 09/19/16 22:21 Dose: 5,000 units Vancomycin HCl 1 gm/ Sodium (Chloride) 250 mls @ 166.7 mls/hr IVPB Q24H [facility] Last Admin: 09/19/16 16:57 Dose: 166.7 mls/hr Ibuprofen (Motrin Tab) 600 mg PO BID PRN PRN Reason: Pain, Mild (1-3) Last Admin: 09/19/16 10:53 Dose: 600 mg Lidocaine (Lidoderm) 1 ea TD DAILY [facility] Last Admin: 09/19/16 10:51 Dose: 1 ea Losartan Potassium (Cozaar) 50 mg PO DAILY [facility] Last Admin: 09/19/16 10:59 Dose: 50 mg Magnesium Hydroxide (Milk Of Magnesia) 30 ml PO DAILY PRN PRN Reason: Constipation Rosuvastatin Calcium (Crestor) 10 mg PO HS [facility] Last Admin: 09/19/16 22:00 Dose: 10 mg Sotalol HCl (Betapace) 80 mg PO Q12 [facility] Last Admin: 09/19/16 22:01 Dose: 80 mg - Labs Labs: 09/19/16 13:22 09/19/16 13:22 PT 11.1 SECONDS (9.7-12.2) 09/16/16 00:48 INR 1.0 09/16/16 00:48 APTT 32 SECONDS (21-34) 09/16/16 00:48 Assessment and Plan (1) Cellulitis Status: Acute (2) Knee pain Status: Acute (3) Septic arthritis of knee Status: Acute
--- NOTE | 2016-09-19 22:50 | CP.PCM.PN ---
Subjective - Date & Time of Evaluation Date of Evaluation: 09/19/16 Time of Evaluation: 19:00 - Subjective Subjective: Pt seen & examined, Patient states that her knee feels much better. Objective - Vital Signs/Intake and Output Vital Signs (last 24 hours): Temp Pulse Resp BP Pulse Ox 98.3 F 76 20 149/72 97 09/19/16 15:00 09/19/16 22:03 09/19/16 15:00 09/19/16 22:03 09/19/16 15:00 Intake and Output: 09/19/16 09/20/16 18:59 06:59 Intake Total 650 Balance 650 - Medications Medications: Current Medications Acetaminophen/Codeine Phosphate (Tylenol/Codeine 300 Mg/30 Mg) 1 ea PO Q4 PRN PRN Reason: Pain, severe (8-10) Last Admin: 09/19/16 20:25 Dose: 1 ea Amlodipine Besylate (Norvasc) 5 mg PO DAILY [facility] Last Admin: 09/19/16 11:00 Dose: 5 mg Duloxetine HCl (Cymbalta) 30 mg PO DAILY [facility] Last Admin: 09/19/16 10:52 Dose: 30 mg Famotidine (Pepcid) 20 mg PO DAILY [facility] Last Admin: 09/19/16 10:59 Dose: 20 mg Heparin Sodium (Porcine) (Heparin) 5,000 units SC Q8 [facility] Last Admin: 09/19/16 22:21 Dose: 5,000 units Vancomycin HCl 1 gm/ Sodium (Chloride) 250 mls @ 166.7 mls/hr IVPB Q24H [facility] Last Admin: 09/19/16 16:57 Dose: 166.7 mls/hr Ibuprofen (Motrin Tab) 600 mg PO BID PRN PRN Reason: Pain, Mild (1-3) Last Admin: 09/19/16 10:53 Dose: 600 mg Lidocaine (Lidoderm) 1 ea TD DAILY [facility] Last Admin: 09/19/16 10:51 Dose: 1 ea Losartan Potassium (Cozaar) 50 mg PO DAILY [facility] Last Admin: 09/19/16 10:59 Dose: 50 mg Magnesium Hydroxide (Milk Of Magnesia) 30 ml PO DAILY PRN PRN Reason: Constipation Rosuvastatin Calcium (Crestor) 10 mg PO HS [facility] Last Admin: 09/19/16 22:00 Dose: 10 mg Sotalol HCl (Betapace) 80 mg PO Q12 [facility] Last Admin: 09/19/16 22:01 Dose: 80 mg - Labs Labs: 09/19/16 13:22 09/19/16 13:22 PT 11.1 SECONDS (9.7-12.2) 09/16/16 00:48 INR 1.0 09/16/16 00:48 APTT 32 SECONDS (21-34) 09/16/16 00:48 - Constitutional Appears: No Acute Distress - Head Exam Head Exam: ATRAUMATIC, NORMAL INSPECTION, NORMOCEPHALIC - Eye Exam Eye Exam: EOMI, Normal appearance, PERRL Pupil Exam: NORMAL ACCOMODATION, PERRL - ENT Exam ENT Exam: Mucous Membranes Moist, Normal Exam - Respiratory Exam Respiratory Exam: Clear to Ausculation Bilateral, NORMAL BREATHING PATTERN - Cardiovascular Exam Cardiovascular Exam: REGULAR RHYTHM, +S1, +S2. absent: Murmur - GI/Abdominal Exam GI & Abdominal Exam: Soft, Normal Bowel Sounds. absent: Tenderness - Extremities Exam Additional comments: decreased redness and swelling of right knee - Neurological Exam Neurological Exam: Alert, Awake, CN II-XII Intact, Normal Gait, Oriented x3 Assessment and Plan (1) Cellulitis Status: Acute (2) Knee pain Status: Acute (3) Septic arthritis of knee Assessment & Plan: continue 6 weeks of Iv antibiotics as per ID Status: Acute
[2016-09-20] MEDS: Acetaminophen-Codeine 300/30 mg Tab PO PRN (02:44)
--- NOTE | 2016-09-20 08:27 | CP.PCM.PN ---
Subjective - Date & Time of Evaluation Date of Evaluation: 09/20/16 Time of Evaluation: 09:00 - Subjective Subjective: Patient states knee pain continues to improve, she only has mild occasional pain at night. Review of Systems - Review of Systems All systems: reviewed and no additional remarkable complaints except - Cardiovascular Cardiovascular: UNREMARKABLE - Respiratory Respiratory: UNREMARKABLE - Gastrointestinal Gastrointestinal: UNREMARKABLE - Musculoskeletal Musculoskeletal: As Par HPI - Integumentary Integumentary: UNREMARKABLE - Neurological Neurological: UNREMARKABLE - Hematologic/Lymphatic Hematologic: UNREMARKABLE Objective - Vital Signs/Intake and Output Vital Signs (last 24 hours): Temp Pulse Resp BP Pulse Ox 98.3 F 68 20 153/65 H 98 09/20/16 07:47 09/20/16 07:47 09/20/16 07:47 09/20/16 07:47 09/20/16 07:47 Intake and Output: 09/20/16 09/20/16 06:59 18:59 Intake Total 650 180 Balance 650 180 - Medications Medications: Current Medications Acetaminophen/Codeine Phosphate (Tylenol/Codeine 300 Mg/30 Mg) 1 ea PO Q4 PRN PRN Reason: Pain, severe (8-10) Last Admin: 09/19/16 20:25 Dose: 1 ea Amlodipine Besylate (Norvasc) 5 mg PO DAILY [facility] Last Admin: 09/19/16 11:00 Dose: 5 mg Duloxetine HCl (Cymbalta) 30 mg PO DAILY [facility] Last Admin: 09/19/16 10:52 Dose: 30 mg Famotidine (Pepcid) 20 mg PO DAILY [facility] Last Admin: 09/19/16 10:59 Dose: 20 mg Heparin Sodium (Porcine) (Heparin) 5,000 units SC Q8 [facility] Last Admin: 09/20/16 05:25 Dose: 5,000 units Vancomycin HCl 1 gm/ Sodium (Chloride) 250 mls @ 166.7 mls/hr IVPB Q24H [facility] Last Admin: 09/19/16 16:57 Dose: 166.7 mls/hr Ibuprofen (Motrin Tab) 600 mg PO BID PRN PRN Reason: Pain, Mild (1-3) Last Admin: 09/20/16 02:51 Dose: 600 mg Lidocaine (Lidoderm) 1 ea TD DAILY [facility] Last Admin: 09/19/16 10:51 Dose: 1 ea Losartan Potassium (Cozaar) 50 mg PO DAILY [facility] Last Admin: 09/19/16 10:59 Dose: 50 mg Magnesium Hydroxide (Milk Of Magnesia) 30 ml PO DAILY PRN PRN Reason: Constipation Rosuvastatin Calcium (Crestor) 10 mg PO HS [facility] Last Admin: 09/19/16 22:00 Dose: 10 mg Sotalol HCl (Betapace) 80 mg PO Q12 [facility] Last Admin: 09/19/16 22:01 Dose: 80 mg - Labs Labs: 09/19/16 13:22 09/19/16 13:22 PT 11.1 SECONDS (9.7-12.2) 09/16/16 00:48 INR 1.0 09/16/16 00:48 APTT 32 SECONDS (21-34) 09/16/16 00:48 - Respiratory Exam Respiratory Exam: NORMAL BREATHING PATTERN - Extremities Exam Additional comments: Right knee: swelling improving, area of discoloration almost resolved. Full AROM knee without pain. Knee minimally warm, area around knee no longer warm. Sensation itnact, +DP pulse, calves soft NT neg homans - Neurological Exam Neurological Exam: Alert, Awake, Oriented x3 Neuro motor strength exam: Right Lower Extremity: 5 (knee flex/ext, ankle DF/PF) - Psychiatric Exam Psychiatric exam: Normal Affect, Normal Mood - Skin Skin Exam: Dry, Intact, Warm Assessment and Plan (1) S/P TKR (total knee replacement) Assessment & Plan: pain continues to improve continue conservative mgmt Abx per Dr. Tilley PT/OT ortho stable for rehab placement discussed with patient's daughter at her request regarding treatment plan and follow up d/w Dr. kramer, agrees with above Status: Chronic
--- NOTE | 2016-09-20 08:40 | CP.PCM.PN ---
<Clifford Skelton - Last Filed: 09/20/16 08:40> Subjective - Date & Time of Evaluation Date of Evaluation: 09/20/16 Time of Evaluation: 08:00 Objective - Vital Signs/Intake and Output Vital Signs (last 24 hours): Temp Pulse Resp BP Pulse Ox 98.3 F 68 20 153/65 H 98 09/20/16 07:47 09/20/16 07:47 09/20/16 07:47 09/20/16 07:47 09/20/16 07:47 Intake and Output: 09/20/16 09/20/16 06:59 18:59 Intake Total 650 180 Balance 650 180 - Medications Medications: Current Medications Acetaminophen/Codeine Phosphate (Tylenol/Codeine 300 Mg/30 Mg) 1 ea PO Q4 PRN PRN Reason: Pain, severe (8-10) Last Admin: 09/19/16 20:25 Dose: 1 ea Amlodipine Besylate (Norvasc) 5 mg PO DAILY [facility] Last Admin: 09/19/16 11:00 Dose: 5 mg Duloxetine HCl (Cymbalta) 30 mg PO DAILY [facility] Last Admin: 09/19/16 10:52 Dose: 30 mg Famotidine (Pepcid) 20 mg PO DAILY [facility] Last Admin: 09/19/16 10:59 Dose: 20 mg Heparin Sodium (Porcine) (Heparin) 5,000 units SC Q8 [facility] Last Admin: 09/20/16 05:25 Dose: 5,000 units Vancomycin HCl 1 gm/ Sodium (Chloride) 250 mls @ 166.7 mls/hr IVPB Q24H [facility] Last Admin: 09/19/16 16:57 Dose: 166.7 mls/hr Ibuprofen (Motrin Tab) 600 mg PO BID PRN PRN Reason: Pain, Mild (1-3) Last Admin: 09/20/16 02:51 Dose: 600 mg Lidocaine (Lidoderm) 1 ea TD DAILY [facility] Last Admin: 09/19/16 10:51 Dose: 1 ea Losartan Potassium (Cozaar) 50 mg PO DAILY [facility] Last Admin: 09/19/16 10:59 Dose: 50 mg Magnesium Hydroxide (Milk Of Magnesia) 30 ml PO DAILY PRN PRN Reason: Constipation Rosuvastatin Calcium (Crestor) 10 mg PO HS [facility] Last Admin: 09/19/16 22:00 Dose: 10 mg Sotalol HCl (Betapace) 80 mg PO Q12 [facility] Last Admin: 09/19/16 22:01 Dose: 80 mg - Labs Labs: 09/19/16 13:22 09/19/16 13:22 PT 11.1 SECONDS (9.7-12.2) 09/16/16 00:48 INR 1.0 09/16/16 00:48 APTT 32 SECONDS (21-34) 09/16/16 00:48 Assessment and Plan (1) Cellulitis Status: Acute (2) Knee pain Status: Acute (3) Septic arthritis of knee Status: Acute <Orestes Pedraza A - Last Filed: 09/20/16 10:32> Subjective - Date & Time of Evaluation Date of Evaluation: 09/20/16 Time of Evaluation: 09:00 - Subjective Subjective: Patient states knee pain continues to get better. She requests to go home. Patient advised to follow course of treatment prescribed by Dr. Tilley as she is improving since admission. Spoke with daughter at patient's request, explained plan and follow up. Objective - Vital Signs/Intake and Output Vital Signs (last 24 hours): Temp Pulse Resp BP Pulse Ox 98.3 F 68 20 153/65 H 98 09/20/16 07:47 09/20/16 07:47 09/20/16 07:47 09/20/16 07:47 09/20/16 07:47 Intake and Output: 09/20/16 09/20/16 06:59 18:59 Intake Total 650 180 Balance 650 180 - Medications Medications: Current Medications Acetaminophen/Codeine Phosphate (Tylenol/Codeine 300 Mg/30 Mg) 1 ea PO Q4 PRN PRN Reason: Pain, severe (8-10) Last Admin: 09/19/16 20:25 Dose: 1 ea Amlodipine Besylate (Norvasc) 5 mg PO DAILY [facility] Last Admin: 09/20/16 09:50 Dose: 5 mg Duloxetine HCl (Cymbalta) 30 mg PO DAILY [facility] Last Admin: 09/20/16 09:50 Dose: 30 mg Famotidine (Pepcid) 20 mg PO DAILY [facility] Last Admin: 09/20/16 09:50 Dose: 20 mg Heparin Sodium (Porcine) (Heparin) 5,000 units SC Q8 [facility] Last Admin: 09/20/16 05:25 Dose: 5,000 units Vancomycin HCl 1 gm/ Sodium (Chloride) 250 mls @ 166.7 mls/hr IVPB Q24H [facility] Last Admin: 09/19/16 16:57 Dose: 166.7 mls/hr Ibuprofen (Motrin Tab) 600 mg PO BID PRN PRN Reason: Pain, Mild (1-3) Last Admin: 09/20/16 02:51 Dose: 600 mg Lidocaine (Lidoderm) 1 ea TD DAILY [facility] Last Admin: 09/20/16 09:50 Dose: 1 ea Losartan Potassium (Cozaar) 50 mg PO DAILY [facility] Last Admin: 09/20/16 09:50 Dose: 50 mg Magnesium Hydroxide (Milk Of Magnesia) 30 ml PO DAILY PRN PRN Reason: Constipation Rosuvastatin Calcium (Crestor) 10 mg PO HS [facility] Last Admin: 09/19/16 22:00 Dose: 10 mg Sotalol HCl (Betapace) 80 mg PO Q12 [facility] Last Admin: 09/20/16 09:52 Dose: 80 mg - Labs Labs: 09/19/16 13:22 09/19/16 13:22 PT 11.1 SECONDS (9.7-12.2) 09/16/16 00:48 INR 1.0 09/16/16 00:48 APTT 32 SECONDS (21-34) 09/16/16 00:48 - Constitutional Appears: Well, No Acute Distress - Extremities Exam Additional comments: Right knee: discoloration almost resolved. No longer warm, knee minimally warm. Full AROM without pain. calves soft NT neg homans skin intact, incision well healed. swelling resolving. - Neurological Exam Neurological Exam: Alert, Awake, Oriented x3 Neuro motor strength exam: Right Lower Extremity: 5 (Right knee flex/ext, ankle DF/PF) - Psychiatric Exam Psychiatric exam: Normal Affect, Normal Mood - Skin Skin Exam: Dry, Intact, Warm Additional comments: discolored area almost resolved Assessment and Plan (1) S/P TKR (total knee replacement) Status: Chronic
[2016-09-20] MEDS: Lidocaine 5% Patch TD SCH (09:50)
--- NOTE | 2016-09-20 15:10 | CP.PCM.PN ---
Subjective - Date & Time of Evaluation Date of Evaluation: 09/20/16 Time of Evaluation: 11:00 - Subjective Subjective: Pt seen and examined today , pain and swelling improved, denies any other complaints a febrile Objective - Vital Signs/Intake and Output Vital Signs (last 24 hours): Temp Pulse Resp BP Pulse Ox 98.3 F 68 20 153/65 H 98 09/20/16 07:47 09/20/16 12:44 09/20/16 07:47 09/20/16 12:44 09/20/16 12:44 Intake and Output: 09/20/16 09/20/16 06:59 18:59 Intake Total 650 1230 Balance 650 1230 - Medications Medications: Current Medications Acetaminophen/Codeine Phosphate (Tylenol/Codeine 300 Mg/30 Mg) 1 ea PO Q4 PRN PRN Reason: Pain, severe (8-10) Last Admin: 09/19/16 20:25 Dose: 1 ea Amlodipine Besylate (Norvasc) 5 mg PO DAILY [facility] Last Admin: 09/20/16 09:50 Dose: 5 mg Duloxetine HCl (Cymbalta) 30 mg PO DAILY [facility] Last Admin: 09/20/16 09:50 Dose: 30 mg Famotidine (Pepcid) 20 mg PO DAILY [facility] Last Admin: 09/20/16 09:50 Dose: 20 mg Heparin Sodium (Porcine) (Heparin) 5,000 units SC Q8 [facility] Last Admin: 09/20/16 13:37 Dose: 5,000 units Vancomycin HCl 1 gm/ Sodium (Chloride) 250 mls @ 166.7 mls/hr IVPB Q24H [facility] Last Admin: 09/20/16 13:39 Dose: 166.7 mls/hr Ibuprofen (Motrin Tab) 600 mg PO BID PRN PRN Reason: Pain, Mild (1-3) Last Admin: 09/20/16 02:51 Dose: 600 mg Lidocaine (Lidoderm) 1 ea TD DAILY [facility] Last Admin: 09/20/16 09:50 Dose: 1 ea Losartan Potassium (Cozaar) 50 mg PO DAILY [facility] Last Admin: 09/20/16 09:50 Dose: 50 mg Magnesium Hydroxide (Milk Of Magnesia) 30 ml PO DAILY PRN PRN Reason: Constipation Rosuvastatin Calcium (Crestor) 10 mg PO HS [facility] Last Admin: 09/19/16 22:00 Dose: 10 mg Sotalol HCl (Betapace) 80 mg PO Q12 [facility] Last Admin: 09/20/16 09:52 Dose: 80 mg - Labs Labs: 09/19/16 13:22 09/19/16 13:22 PT 11.1 SECONDS (9.7-12.2) 09/16/16 00:48 INR 1.0 09/16/16 00:48 APTT 32 SECONDS (21-34) 09/16/16 00:48 - Constitutional Appears: Well, No Acute Distress - Respiratory Exam Respiratory Exam: Clear to Ausculation Bilateral, NORMAL BREATHING PATTERN - Extremities Exam Extremities Exam: Joint Swelling (left knee/+ erythema) - Neurological Exam Neurological Exam: Alert, Awake, Oriented x3 Assessment and Plan - Assessment and Plan (Free Text) Assessment: A/P 86 yr old female admitted for cellulitis left knee s/p total knee replacement swelling and discoloration improved after antibiotics seen by Ortho today , recommends to continue conservative management and continue antibiotics and f/u with Dr. Alexis office PT/OT and stable for discharge to rehab D/W Dr. Tilley recommends 4 weeks of vanco D/W with patient and patient declined SONDRA and opted to go home and out pt IV infusion CM arranged vancomycin out pt at [facility] and transportation Discharge plan discussed with patient who understands and agrees with plan Pt on tylenol #3 for pain we will prescribe 5 days supply of tylenol #3 and pt will f/u with PMD
[2016-09-20 15:59] VITALS: BP 164/88; PULSE 70; TEMP 98.1; O2SAT 94
--- NOTE | 2016-09-22 15:34 | CP.PCM.DIS ---
Provider - Provider Date of Admission: 09/16/16 02:53 Attending physician: Clifford Skelton MD Time Spent in preparation of Discharge (in minutes): 45 Diagnosis - Discharge Diagnosis (1) Cellulitis Status: Acute (2) Knee pain Status: Acute (3) Septic arthritis of knee Status: Acute Priority: High Hospital Course - Lab Results Lab Results: Most Recent Lab Values WBC 6.4 K/uL (4.8-10.8) 09/19/16 13:22 RBC 4.24 Mil/uL (3.80-5.20) 09/19/16 13:22 Hgb 12.3 g/dL (11.0-16.0) 09/19/16 13:22 Hct 38.2 % (34.0-47.0) 09/19/16 13:22 MCV 90.1 fL (81.0-99.0) 09/19/16 13:22 MCH 29.0 pg (27.0-31.0) 09/19/16 13:22 MCHC 32.1 g/dL (33.0-37.0) L 09/19/16 13:22 RDW 13.9 % (11.5-14.5) 09/19/16 13:22 Plt Count 273 K/uL (130-400) 09/19/16 13:22 MPV 7.8 fL (7.2-11.7) 09/19/16 13:22 Neut % (Auto) 61.5 % (50.0-75.0) 09/19/16 13:22 Lymph % (Auto) 24.2 % (20.0-40.0) 09/19/16 13:22 [place] % (Auto) 9.1 % (0.0-10.0) 09/19/16 13:22 Eos % (Auto) 3.9 % (0.0-4.0) 09/19/16 13:22 Baso % (Auto) 1.3 % (0.0-2.0) 09/19/16 13:22 Neut # 3.9 K/uL (1.8-7.0) 09/19/16 13:22 Lymph # 1.5 K/uL (1.0-4.3) 09/19/16 13:22 [place] # 0.6 K/uL (0.0-0.8) 09/19/16 13:22 Eos # 0.3 K/uL (0.0-0.7) 09/19/16 13:22 Baso # 0.1 K/uL (0.0-0.2) 09/19/16 13:22 ESR 53 mm/hr (0-20) H 09/16/16 11:34 PT 11.1 SECONDS (9.7-12.2) 09/16/16 00:48 INR 1.0 09/16/16 00:48 APTT 32 SECONDS (21-34) 09/16/16 00:48 pO2 31 mm/Hg (30-55) 09/16/16 00:45 VBG pH 7.38 (7.32-7.43) 09/16/16 00:45 VBG pCO2 49 mmHg (40-60) 09/16/16 00:45 VBG HCO3 26.2 mmol/L 09/16/16 00:45 VBG Total CO2 30.5 mmol/L (22-28) H 09/16/16 00:45 VBG O2 Sat (Calc) 73.0 % (40-65) H 09/16/16 00:45 VBG Base Excess 3.0 mmol/L (0.0-2.0) H 09/16/16 00:45 VBG Potassium 4.4 mmol/L (3.6-5.2) 09/16/16 00:45 Sodium 135.0 mmol/l (132-148) 09/16/16 00:45 Chloride 103.0 mmol/L (98-107) 09/16/16 00:45 Glucose 90 mg/dl (65-105) 09/16/16 00:45 Lactate 0.8 mmol/L (0.7-2.1) 09/16/16 00:45 Sodium 138 mmol/L (132-148) 09/19/16 13:22 Potassium 3.3 mmol/L (3.6-5.2) L 09/19/16 13:22 Chloride 104 mmol/L (98-107) 09/19/16 13:22 Carbon Dioxide 24 mmol/L (22-30) 09/19/16 13:22 Anion Gap 13 (10-20) 09/19/16 13:22 BUN 9 mg/dL (7-17) 09/19/16 13:22 Creatinine 0.7 MG/DL (0.7-1.2) 09/19/16 13:22 Est GFR ( Amer) > 60 09/19/16 13:22 Est GFR (Non-Af Amer) > 60 09/19/16 13:22 Random Glucose 110 mg/dL (65-105) H 09/19/16 13:22 Calcium 9.0 mg/dl (8.6-10.4) 09/19/16 13:22 Total Bilirubin 0.9 mg/dL (0.2-1.3) 09/16/16 00:48 AST 34 U/L (14-36) 09/16/16 00:48 ALT 14 U/L (9-52) 09/16/16 00:48 Alkaline Phosphatase 98 U/L (38-126) 09/16/16 00:48 C-React Prot High Sens > 15.00 mg/L (1.00-3.00) H 09/16/16 11:34 Total Protein 7.9 g/dL (6.3-8.3) 09/16/16 00:48 Albumin 3.8 g/dL (3.5-5.0) 09/16/16 00:48 Globulin 4.1 gm/dL (2.2-3.9) H 09/16/16 00:48 Albumin/Globulin Ratio 0.9 (1.0-2.1) L 09/16/16 00:48 Venous Blood Potassium 4.4 mmol/L (3.6-5.2) 09/16/16 00:45 Vancomycin Trough 11.0 ug/mL (5.0-10.0) H 09/19/16 07:14 - Hospital Course Hospital Course: A/P 86 yr old female admitted for cellulitis left knee s/p total knee replacement swelling and discoloration improved after antibiotics seen by Ortho today , recommends to continue conservative management and continue antibiotics and f/u with Dr. Alexis office PT/OT and stable for discharge to rehab D/W Dr. Tilley recommends 4 weeks of vanco D/W with patient and patient declined SONDRA and opted to go home and out pt IV infusion CM arranged vancomycin out pt at [facility] and transportation Discharge plan discussed with patient who understands and agrees with plan Pt on tylenol #3 for pain we will prescribe 5 days supply of tylenol #3 and pt will f/u with PMD Discharge Exam - Head Exam Head Exam: ATRAUMATIC, NORMAL INSPECTION, NORMOCEPHALIC - Eye Exam Eye Exam: EOMI, Normal appearance, PERRL Pupil Exam: NORMAL ACCOMODATION, PERRL - Respiratory Exam Respiratory Exam: Clear to PA & Lateral, NORMAL BREATHING PATTERN - Cardiovascular Exam Cardiovascular Exam: REGULAR RHYTHM, +S1, +S2 - GI/Abdominal Exam GI & Abdominal Exam: Normal Bowel Sounds Discharge Plan - Discharge Medications Prescriptions: Acetaminophen/Codeine [Tylenol/Codeine 300 MG/30 MG] 1 ea PO Q4 PRN #20 tab PRN Reason: Pain, Severe (8-10) - Follow Up Plan Condition: FAIR Disposition: HOME/ ROUTINE Instructions: Acetaminophen/Codeine (By mouth), Cellulitis (DC) Additional Instructions: Please resume all Home medications Please come to out pt clinic at [address] at 10 am for antibiotics Please f/u with Dr. Alexis office in 10 days - call for appointment continue vancomycin for x 4 weeks Referrals: Jerome Merida III, MD [Staff Provider] - Clifford Skelton MD [Staff Provider] -
== END 2016-09-20 16:40 | disposition home or self-care (01) | DRG 603 ==
LOC: C.ER 21:46 → C.9E 09-16 02:53 → C.3T 09-16 06:15
PROVIDERS: ADMIT Internal Medicine; ATTEND Internal Medicine
PROC: 02HV33Z Insertion of Infusion Device into Superior Vena Cava, Percutaneous Approach (ICD-10-PCS; principal; 2016-09-19)
PROC: B548ZZA Ultrasonography of Superior Vena Cava, Guidance (ICD-10-PCS; 2016-09-19)
DX: L03.116 Cellulitis of left lower limb (principal); I10 Essential (primary) hypertension; M25.462 Effusion, left knee; Z96.652 Presence of left artificial knee joint; E78.00 Pure hypercholesterolemia, unspecified; M81.0 Age-related osteoporosis without current pathological fracture; Z95.0 Presence of cardiac pacemaker